=== PATIENT | male | born 1960 | race Caucasian/White ===

== ENCOUNTER 2021-08-10 09:12 | Outpatient (REF) | payer OTHER, SELFPAY ==
--- NOTE | ~2021-08-10 | XR_ITS ---
EXAMINATION: XR CHEST CLINICAL INFORMATION: COPD. COMPARISON: Chest radiograph done on 11/06/2012. TECHNIQUE: 2 views of the chest were obtained. FINDINGS: Asymmetric elevated left hemidiaphragm with mild blunting of the left lateral CP angle. Previously documented retrocardiac airspace disease at left lung base shows interval resolution. Pleural parenchymal presumed scar related changes are noted at right lung apex. Both lungs are otherwise hyperinflated, similar to prior study. Cardiac mediastinal silhouette is within normal limit. The visualized upper abdomen is unremarkable. XR/XR chest 2V IMPRESSION: 1. Asymmetric elevated left hemidiaphragm and blunting of the left lateral CP angle, similar to prior study dated 11/06/2012. 2. Interval resolution of retrocardiac airspace disease since prior study. 3. Stable pleuroparenchymal scar at right lung apex. 4. Hyperinflated lung page consistent with known COPD.
[2021-08-10 09:43] LABS: MANUAL DIFF FLAG NO
[2021-08-10 10:07] LABS: Basophils Absolute Auto 0.1 X10*3/uL (0.0-0.2); Basophils Percent Auto 1.1 % (0-2); Eosinophils Absolute Auto 0.2 X10*3/uL (0.0-0.4); Eosinophils Percent Auto 2.5 % (0-4); Hematocrit 48.3 % (42.0-52.0); Hemoglobin 15.9 g/dl (14.0-18.0); Imm Gran Abs Auto 0.02 X10*3/uL (0.00-0.03); Imm Gran Pct Auto 0.3 % (0.0-0.4); Lymphocytes Absolute Auto 1.3 X10*3/uL (1.2-4.9); Lymphocytes Percent Auto 18.4 % (20-40); Mean Corpuscular HGB Conc 32.9 g/dl (31.0-36.0); Mean Corpuscular Hemoglobin 31.1 pg (27.0-33.0); Mean Corpuscular Volume 94.3 fL (80.0-98.0); Mean Platelet Volume 9.3 fL (9.4-12.4); Monocytes Absolute Auto 0.8 X10*3/uL (0.1-1.2); Monocytes Percent Auto 10.7 % (2-11); Neutrophils Absolute Auto 4.8 x10*3/uL (2.0-8.3); Platelet Count 301 X10*3/uL (160-400); Red Blood Count 5.12 X10*6/uL (4.60-5.80); Red Cell Distribution Width 13.7 % (11.0-16.0); White Blood Count 7.2 X10*3/uL (4.8-10.8)
[2021-08-10 10:25] LABS: Appearance Urine CLEAR; Color Urine YELLOW; Glucose Urine UA NEG (NEG); Leukocyte Esterase Urine NEG (NEG); Nitrite Urine NEG (NEG); Urine Blood NEG (NEG); Urine Ketones NEG (NEG); Urine Protein NEG (NEG-TRACE)
[2021-08-10 10:34] LABS: Alanine Aminotransferase 22 U/L (0-40); Albumin Level 4.4 g/dL (3.5-5.0); Alkaline Phosphatase 76 U/L (39-117); Anion Gap 13 (12-20); Aspartate Amino Transferase 20 U/L (5-37); Bilirubin Total 0.7 mg/dL (0.0-1.0); Blood Urea Nitrogen 18 mg/dL (9-16); Calcium 9.3 mg/dL (8.4-10.2); Carbon Dioxide 29 mmol/L (22-29); Chloride 97 mmol/L (96-108); Cholesterol 176 mg/dL; Estimated Glomerular Filt Rate > 60; Glucose Fasting 87 mg/dL (60-99); HDL Cholesterol 57 mg/dL; LDL Cholesterol Calculated 99 mg/dl; Potassium 4.7 mmol/L (3.3-5.1); Sodium 134 mmol/L (135-145); Total Protein 7.7 g/dL (6.5-8.0); Triglycerides 102 mg/dL
[2021-08-10 10:55] LABS: Free T4 (Free Thyroxine) 1.04 ng/dL (0.71-1.85); Prostate Specific Antigen 1.68 ng/mL (<0.05-4.0); Thyroid Stimulating Hormone 0.77 uIU/mL (0.32-4.0)
[2021-08-10 11:12] LABS: Vitamin B12 286 pg/mL (200-900)
== END 2021-08-10 09:13 | disposition home or self-care (01) ==
LOC: HO.XRAY 09:12
PROVIDERS: PCP Internal Medicine; Visit Provider Internal Medicine
DX: Z00.00 Encounter for general adult medical examination without abnormal findings (principal); Z12.5 Encounter for screening for malignant neoplasm of prostate; R60.0 Localized edema; J44.9 Chronic obstructive pulmonary disease, unspecified; N40.0 Benign prostatic hyperplasia without lower urinary tract symptoms; I45.10 Unspecified right bundle-branch block
CPT/HCPCS: 36415; 71046; 80053; 80061; 81003; 82607; 84153; 84439; 84443; 85025

== ENCOUNTER → 2021-09-19 09:21 | Outpatient (REF) | payer OTHER, SELFPAY ==
--- NOTE | 2021-09-19 09:24 | CA_ITS ---
Transthoracic Echocardiogram Patient (Last, First, Middle): Harry Nelson P Gender: Male Date of : 1960 Age: 61 Procedure Date: 09/19/2021 Procedure Type: Transthoracic Echocardiogram Location: OP Height: 172.72 cm Weight: 68.04 kg BSA: 1.81 m2 Heart Rate: bpm BP: 134 / 80 mmHg Industrial Engineering Manager: Referring MD: Drew Clay MD Personal Insurance Advisor: Rg Guallpa MD Symptoms: R60.9 EDEMA 145.10 RRRR Study Quality: Fair ECG Rhythm: Sinus Conclusions: - 1. Normal LV systolic function with impaired relaxation filling pattern 2. Thickened aortic valve, aortic stenosis and bicuspid aortic valve cannot be entirely ruled out 3. Normal cardiac valvular Doppler 4. Normal RV systolic pressure 5. No pericardial effusion Findings Left Ventricle Normal left ventricular size, thickness, and systolic function. The visually estimated ejection fraction is between 60-65%. Spectral Doppler is indicative of an impaired relaxation filling pattern. E/E prime ratio is between 8 and 15 consistent with indeterminate filling pressures. Right Ventricle Normal right ventricular cavity size and systolic function. Atria The left atrium is normal in size. Interatrial shunt cannot be excluded. The right atrium was not well visualized. Aortic Valve The aortic valve was not well visualized. There is mild calcification of the aortic valve. There is severe thickening of the aortic valve. There is no aortic valve regurgitation. bicuspid aortic valve cannot be entirely ruled out. Also aortic stenosis cannot be entirely ruled out Mitral Valve Likely normal mitral valve structure and function. There is trace mitral valve regurgitation. There is no mitral valve stenosis. Pulmonic Valve The pulmonic valve was not well visualized. Tricuspid Valve Likely normal tricuspid valve structure and function. There is trace tricuspid valve regurgitation. The right ventricular systolic pressure is normal. The right ventricular systolic pressure is 32 mmHg. Normal right atrial pressure. There is no evidence of pulmonary hypertension. Great Vessels All visible segments of the aorta are normal in size. The pulmonary artery was not well visualized. Venous The inferior vena cava is normal in size and collapses greater than 50% with inspiration. Pericardium/Pleural There is no evidence of pericardial effusion. Prior Study Comparison No prior study available for comparison. Measurements 2D Linear Measurements IVSd: 1.05 0.6-0.9/0.6-1.0 cm LVIDd: 4.05 3.9-5.3/4.2-5.9 cm LVIDd Index: 2.24 2.4-3.2/2.2-3.1 cm/m2 LVIDs: 2.29 2.0-3.6 cm LVPWd: 0.98 0.7-1.1 cm Ao Root: 2.80 2.1-3.5 cm LA Diam: 3.30 2.7-3.8/3.0-4.0 cm LAIDs Index: 1.82 1.5-2.3 cm/m2 LV Mass: 164.20 67-162/88-224 g LV Mass Index: 90.72 43-95/49-115 g/m2 LVOT Diam: 2.40 3.0+(-)1.3 cm Mitral Valve MV Pk E: 0.91 MV PK A: 1.05 MV Decel Time: 203.00 E/A: 0.90 E'Lateral: 7.51 E'Medial: 8.81 E/E' Med: 10.40 E/E' Lat: 12.10 PHT: 59.00 MVA PHT: 3.73 Decel Blount: 4.50 Aortic Valve AoV Pk Chris: 1.48 AoV Mn Chris: 1.01 AoV VTI: 0.33 AoV Pk Grad: 9.00 Aov Mn Grad: 5.00 BARBARA Cont.VTI: 3.41 LVOT LVOT Pk Chris: 1.10 LVOT Mn Chris: 0.75 LVOT VTI: 0.25 LVOT Pk Grad: 5.00 LVOT Mn Grad: 3.00 LVOT Diam: 2.40 LVOT Area: 4.52 Diastolic Function MV Pk E: 0.91 MV Pk A: 1.05 E/A: 0.90 E'Medial: 8.81 E/E' Med: 10.40 E' Laterial: 7.51 E/E' Lat: 12.10 Tricuspid Valve TR Pk Chris: 2.68 TR Pk Grad: 29.00 RA Press: 3.00 RVSP: 32.00 Great Vessels Aorta Ao Root-2D: 2.80 2.0-3.7 cm Ao Asc: 2.70 2.1-3.4 cm Pulmonary Valve PV Pk Chris: 1.09 Peak PV Grad: 5.00 Updated in Other Vendor System with Status of Final Rg Guallpa MD electronically signed on 09/19/2021 3:44:13 PM with status of Final
== END ==
LOC: HO.CARD 09:21
PROVIDERS: PCP Internal Medicine; Visit Provider Internal Medicine
DX: R60.9 Edema, unspecified (principal); I45.10 Unspecified right bundle-branch block
CPT/HCPCS: 93306

== ENCOUNTER 2021-11-27 09:06 | Outpatient (REF) | payer OTHER, SELFPAY ==
--- NOTE | ~2021-11-27 | XR_ITS ---
EXAMINATION: BILATERAL FOOT CLINICAL INFORMATION: Bilateral foot pain COMPARISON: None TECHNIQUE: 3 views each foot. FINDINGS: Left foot: There is no visible acute fracture, dislocation or subluxation seen. The ankle mortise and subtalar joints are normal. The soft tissues are normal. Right foot: There is no visible acute fracture, dislocation or subluxation seen. The ankle mortise and subtalar joints are normal. The soft tissues are normal. XR/XR foot LT min 3V IMPRESSION: Unremarkable bilateral foot exam.
--- NOTE | ~2021-11-27 | XR_ITS ---
EXAMINATION: BILATERAL FOOT CLINICAL INFORMATION: Bilateral foot pain COMPARISON: None TECHNIQUE: 3 views each foot. FINDINGS: Left foot: There is no visible acute fracture, dislocation or subluxation seen. The ankle mortise and subtalar joints are normal. The soft tissues are normal. Right foot: There is no visible acute fracture, dislocation or subluxation seen. The ankle mortise and subtalar joints are normal. The soft tissues are normal. XR/XR foot RT min 3V IMPRESSION: Unremarkable bilateral foot exam.
== END 2021-11-27 09:07 | disposition home or self-care (01) ==
LOC: HO.XRAY 09:06
PROVIDERS: PCP Internal Medicine; Visit Provider Internal Medicine
DX: M79.672 Pain in left foot (principal); M79.671 Pain in right foot
CPT/HCPCS: 73630

== ENCOUNTER 2023-01-18 09:03 | Outpatient (REF) | payer OTHER, SELFPAY ==
[2023-01-18 09:19] LABS: MANUAL DIFF FLAG NO
[2023-01-18 09:43] LABS: Basophils Absolute Auto 0.1 X10*3/uL (0.0-0.2); Basophils Percent Auto 0.9 % (0-2); Eosinophils Absolute Auto 0.2 X10*3/uL (0.0-0.4); Eosinophils Percent Auto 2.6 % (0-4); Hematocrit 46.9 % (42.0-52.0); Hemoglobin 15.9 g/dl (14.0-18.0); Imm Gran Abs Auto 0.03 X10*3/uL (0.00-0.03); Imm Gran Pct Auto 0.4 % (0.0-0.4); Lymphocytes Absolute Auto 1.2 X10*3/uL (1.2-4.9); Lymphocytes Percent Auto 14.4 % (20-40); Mean Corpuscular HGB Conc 33.9 g/dl (31.0-36.0); Mean Corpuscular Hemoglobin 32.1 pg (27.0-33.0); Mean Corpuscular Volume 94.6 fL (80.0-98.0); Mean Platelet Volume 9.6 fL (9.4-12.4); Monocytes Absolute Auto 0.7 X10*3/uL (0.1-1.2); Monocytes Percent Auto 8.5 % (2-11); Neutrophils Absolute Auto 5.8 x10*3/uL (2.0-8.3); Neutrophils Percent Auto 73.2 % (45-73); Platelet Count 245 X10*3/uL (160-400); Red Blood Count 4.96 X10*6/uL (4.60-5.80); Red Cell Distribution Width 13.7 % (11.0-16.0)
[2023-01-18 10:18] LABS: Alanine Aminotransferase 12 U/L (0-40); Albumin Level 4.3 g/dL (3.5-5.0); Alkaline Phosphatase 64 U/L (39-117); Anion Gap 13 (12-20); Aspartate Amino Transferase 15 U/L (5-37); Bilirubin Total 0.5 mg/dL (0.0-1.0); Blood Urea Nitrogen 11 mg/dL (9-16); C Reactive Protein 0.18 mg/dL (< or = 0.50); Calcium 9.2 mg/dL (8.4-10.2); Carbon Dioxide 28 mmol/L (22-29); Chloride 97 mmol/L (96-108); Estimated Glomerular Filt Rate > 60; Glucose Random 103 mg/dL (60-115); Potassium 4.3 mmol/L (3.3-5.1); Sodium 134 mmol/L (135-145); Total Protein 7.6 g/dL (6.5-8.0)
[2023-01-18 10:34] LABS: Prostate Specific Antigen 2.18 ng/mL (<0.05-4.0)
[2023-01-18 11:24] LABS: Appearance Urine Clear; Color Urine Yellow; Glucose Urine UA Negative (Negative); Leukocyte Esterase Urine Negative (Negative); Nitrite Urine Negative (Negative); Specific Gravity - Urine <= 1.005 (1.005-1.025); Urine Blood Negative (Negative); Urine Ketones Negative (Negative); Urine Protein Negative (Neg-Trace)
== END 2023-01-18 09:04 | disposition home or self-care (01) ==
LOC: HO.LAB 09:03
PROVIDERS: PCP Internal Medicine; Visit Provider Internal Medicine
DX: Z12.5 Encounter for screening for malignant neoplasm of prostate (principal); J44.9 Chronic obstructive pulmonary disease, unspecified; R60.0 Localized edema; I73.9 Peripheral vascular disease, unspecified; K57.90 Diverticulosis of intestine, part unspecified, without perforation or abscess without bleeding
CPT/HCPCS: 36415; 80053; 81003; 84153; 85025; 86140

== ENCOUNTER 2023-02-04 14:23 | Outpatient (REF) | payer OTHER, SELFPAY ==
--- NOTE | ~2023-02-04 | US_ITS ---
EXAMINATION: Bilateral LOWER EXTREMITY DUPLEX CLINICAL INFORMATION: Foot pain COMPARISON: None TECHNIQUE: Real-time ultrasound and Doppler techniques (integrating B-mode 2-D vascular images, Doppler spectral analysis and color flow Doppler imaging) were utilized to interrogate the lower extremities. FINDINGS: RIGHT LEG: Common femoral artery: 113 cm/s, monophasic Profunda femoris artery: 330 cm/s, monophasic Superficial femoral artery (proximal): Occluded Superficial femoral artery (mid): Occluded Superficial femoral artery (distal): 187 cm/s, monophasic Popliteal artery: 44 cm/s, monophasic Anterior tibial artery: 7.3 cm/s, monophasic Peroneal artery: 36.9 cm/s, monophasic Posterior tibial artery: 8.8 cm/s, monophasic LEFT LEG: Common femoral artery: 136 cm/s, monophasic Profunda femoris artery: 281 cm/s, monophasic Superficial femoral artery (proximal): Occluded Superficial femoral artery (mid): Occluded Superficial femoral artery (distal): 52 cm/s, monophasic Popliteal artery: 61.3 cm/s, monophasic Anterior tibial artery: 24.8 cm/s, monophasic Peroneal artery: 59.3 cm/s, monophasic Posterior tibial artery: 31.7 cm/s, monophasic US/US arterial duplex LE BI IMPRESSION: 1. Right: Occlusion of the proximal and mid superficial femoral artery with reconstitution of the distal superficial femoral artery. 2. Left: Occlusion of the proximal and mid superficial femoral artery. There is reconstitution of flow distally. 3. Slow flow and dampened waveforms in the tibial arteries, right greater than left.
--- NOTE | ~2023-02-04 | US_ITS ---
EXAMINATION: US EXTRACRANIAL CAROTID DUPLEX, BILATERAL CLINICAL INFORMATION: Bilateral foot pain and stenosis COMPARISON: None available. TECHNIQUE: Real-time ultrasound and Doppler techniques (integrating B-mode 2-D vascular images, Doppler spectral analysis and color-flow Doppler imaging) were utilized to interrogate the extracranial carotid arteries, the vertebral arteries and proximal subclavian arteries bilaterally. The degree of stenosis is determined by criteria similar to NASCET. FINDINGS: Right Side: 1. There is mild atherosclerotic plaque seen in the bifurcation/proximal ICA region. 2. The common carotid artery PSV proximally is 128 cm/s and distally 110 cm/s. 3. The proximal internal carotid artery velocities are 68 cm/s systolic and 20.5 cm/s diastolic. 4. The proximal external carotid artery PSV is 158 cm/s. 5. The vertebral artery shows antegrade flow. 6. The subclavian artery waveforms are normal. Left Side: 1. There is mild atherosclerotic plaque seen in the bifurcation/proximal ICA region. 2. The common carotid artery PSV proximally is 147 cm/s and distally 80 cm/s. 3. The proximal internal carotid artery velocities are 71.5 cm/s systolic and 18.2 cm/s diastolic. 4. The proximal external carotid artery PSV is 390 cm/s. 5. The vertebral artery shows antegrade flow. 6. The subclavian artery waveforms are normal. US/US carotid duplex BI IMPRESSION: 1. RIGHT: Minimal, non-hemodynamically significant stenosis of the proximal right internal carotid artery corresponding to a 0-49% stenosis by velocity criteria. 2. LEFT: Minimal, non-hemodynamically significant stenosis of the proximal left internal carotid artery corresponding to a 0-49% stenosis by velocity criteria. 3. The left external carotid artery is stenotic.
== END 2023-02-04 14:24 | disposition home or self-care (01) ==
LOC: HO.US 14:23
PROVIDERS: PCP Internal Medicine; Visit Provider Internal Medicine
DX: I65.23 Occlusion and stenosis of bilateral carotid arteries (principal); M25.571 Pain in right ankle and joints of right foot; M25.572 Pain in left ankle and joints of left foot
CPT/HCPCS: 93880; 93925

== ENCOUNTER 2024-01-17 08:59 | Outpatient (REF) | payer OTHER, SELFPAY ==
[2024-01-17 09:16] LABS: MANUAL DIFF FLAG NO
[2024-01-17 10:17] LABS: Appearance Urine Clear; Color Urine Yellow; Glucose Urine UA Negative (Negative); Leukocyte Esterase Urine Negative (Negative); Nitrite Urine Negative (Negative); Specific Gravity - Urine 1.015 (1.005-1.025); Urine Blood Negative (Negative); Urine Ketones Negative (Negative); Urine Protein Negative (Neg-Trace)
[2024-01-17 10:18] LABS: Basophils Absolute Auto 0.1 X10*3/uL (0.0-0.2); Basophils Percent Auto 1.8 % (0-2); Eosinophils Absolute Auto 0.2 X10*3/uL (0.0-0.4); Eosinophils Percent Auto 3.4 % (0-4); Hematocrit 48.4 % (42.0-52.0); Hemoglobin 16.1 g/dl (14.0-18.0); Imm Gran Abs Auto 0.01 X10*3/uL (0.00-0.03); Imm Gran Pct Auto 0.2 % (0.0-0.4); Lymphocytes Absolute Auto 1.3 X10*3/uL (1.2-4.9); Lymphocytes Percent Auto 22.4 % (20-40); Mean Corpuscular HGB Conc 33.3 g/dl (31.0-36.0); Mean Corpuscular Hemoglobin 31.3 pg (27.0-33.0); Mean Platelet Volume 9.7 fL (9.4-12.4); Monocytes Absolute Auto 0.6 X10*3/uL (0.1-1.2); Monocytes Percent Auto 11.1 % (2-11); Neutrophils Absolute Auto 3.5 x10*3/uL (2.0-8.3); Neutrophils Percent Auto 61.1 % (45-73); Platelet Count 291 X10*3/uL (160-400); Red Blood Count 5.15 X10*6/uL (4.60-5.80); Red Cell Distribution Width 14.5 % (11.0-16.0); White Blood Count 5.7 X10*3/uL (4.8-10.8)
[2024-01-17 11:02] LABS: Alanine Aminotransferase 15 U/L (0-40); Albumin Level 4.3 g/dL (3.5-5.0); Alkaline Phosphatase 69 U/L (39-117); Anion Gap 12 (12-20); Aspartate Amino Transferase 14 U/L (5-37); Bilirubin Total 0.5 mg/dL (0.0-1.0); Blood Urea Nitrogen 13 mg/dL (9-16); Calcium 9.2 mg/dL (8.4-10.2); Carbon Dioxide 31 mmol/L (22-29); Chloride 98 mmol/L (96-108); Cholesterol 174 mg/dL (<200); Estimated Glomerular Filt Rate > 60; Glucose Fasting 102 mg/dL (60-99); HDL Cholesterol 58 mg/dL (>40); LDL Cholesterol Calculated 97 mg/dL (<100); Potassium 5.1 mmol/L (3.3-5.1); Sodium 136 mmol/L (135-145); Total Protein 7.7 g/dL (6.5-8.0); Triglycerides 97 mg/dL (<150)
== END 2024-01-17 09:00 | disposition home or self-care (01) ==
LOC: HO.LAB 08:59
PROVIDERS: PCP Internal Medicine; Visit Provider Internal Medicine
DX: J44.9 Chronic obstructive pulmonary disease, unspecified (principal); N40.0 Benign prostatic hyperplasia without lower urinary tract symptoms; I25.10 Atherosclerotic heart disease of native coronary artery without angina pectoris; K57.90 Diverticulosis of intestine, part unspecified, without perforation or abscess without bleeding
CPT/HCPCS: 36415; 80053; 80061; 81003; 85025

== ENCOUNTER 2024-03-11 14:11 | Outpatient (AMB) | payer OTHER, SELFPAY ==
--- NOTE | 2024-03-11 14:11 | MHC.OFFVIS ---
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 He had seen his primary care doctor and complained of numbness of his lower extremities difficulty walking and he had actually developed some ulcerations. He has a history of COPD. He reports that he has been smoking half a pack per day since his teens. [facility] Social History (Updated 03/11/24 @ 14:16 by Renate Bach Clive) Patient Tobacco Use Status: Current everyday Tobacco user Review of Systems Const All systems reviewed & are unremarkable except as noted in HPI and below Reports no additional complaints ENT Reports Normal hearing present Card Denies chest pain, Denies chest pain at rest, Denies chest pain with activity and Denies pedal edema Resp Denies cough GI Denies abdominal pain Musc Denies abnormal gait, Denies muscle cramps and Denies radiating pain into limb Skin/Breast Denies skin ulcer and Denies wounds Neuro Reports Normal hearing present and Denies abnormal gait Psych Reports no additional complaints Physical Exam Const General: cooperative, healthy appearing and comfortable Orientation/consciousness: oriented to person, oriented to place and oriented to time HEENT Head: Yes normal to inspection Neck Neck: Yes normal visual inspection Carotids: no bruits Chest Chest palpation & inspection: normal inspection of the chest Resp Effort & Inspection: normal respiratory effort and able to speak in complete sentences Auscultation: clear to auscultation bilaterally, no crackles, no rales, no rhonchi and no wheezes Cardio Other: Bilateral DP signals Rate: regular rate Rhythm: regular rhythm Heart sounds: S1 normal heart sound present and S2 normal heart sound present Bruits: no carotid bruits Peripheral pulses: Peripheral pulses 2+ throughout GI Inspection: Yes normal to inspection Skin Wounds: no wounds Hair: normal Neuro General: oriented to person, oriented to place and oriented to time Cranial nerves: Yes CN's II-XII intact bilaterally and Yes Normal hearing present Cognition (Neuro): normal cognition Motor exam (neuro): 5/5 motor strength present throughout Extrem Other: venous exam: No significant superficial varicosities or spider telangiectasias, minimal edema General: No clubbing, No cyanosis and No edema Psych Appearance: grossly normal Mental Status: mental status grossly normal Speech and movement: Normal speech and movement present Results Reviewed Results Reviewed: Noninvasive arterial testing dated 02/06/2023 demonstrates bilateral SFA occlusions. There is monophasic flow so there would be concern of inflow disease as well. This is testing dated 920 10/29/2022. Assessment & Plan Assessment & Plan (1) PAD (peripheral artery disease): Code(s): I73.9 - Peripheral vascular disease, unspecified Category: Medical Plan: In short patient has activity limiting claudication. I did review the pathophysiology of peripheral vascular disease with the patient. In addition we did discuss routine conservative measures including a healthy diet and the importance of exercise and ambulation. We did discuss risk factor modification. The patient will require CT angiogram with runoff to better elucidate the level of disease.. Thank you for allowing us to participate in this patient's care. If there are any questions or concerns please do not hesitate to contact us. Please note a longitudinal relationship has been created with the patient and we have been following and surveillance this chronic condition. Orders: Orders Creatinine Today I73.9 - Peripheral vascular disease, unspecified CT angio abd aorta runoff 1 Week I73.9 - Peripheral vascular disease, unspecified Blood Urea Nitrogen Today I73.9 - Peripheral vascular disease, unspecified Coding Level of Care Code New Pt Level 4 (96999) Complex EM visit Add On G2211 Diagnoses PAD (peripheral artery disease) I73.9
== END 2024-03-11 14:28 | disposition home or self-care (01) ==
LOC: HO.HVS 14:11
PROVIDERS: PCP Internal Medicine; Visit Provider Surgery Vascular Surgery
DX: I73.9 Peripheral vascular disease, unspecified (principal)
CPT/HCPCS: 99204; G2211

== ENCOUNTER → 2024-03-11 14:11 | Outpatient (BNVA) | payer OTHER, SELFPAY | PROVIDERS: PCP Internal Medicine; Visit Provider Surgery Vascular Surgery | DX: I73.9 Peripheral vascular disease, unspecified (principal) | CPT/HCPCS: 99202 ==

== ENCOUNTER 2024-03-20 09:01 | Outpatient (REF) | payer OTHER, SELFPAY ==
[2024-03-20 10:20] LABS: Blood Urea Nitrogen 13 mg/dL (9-16); Estimated Glomerular Filt Rate > 60
== END 2024-03-20 09:02 | disposition home or self-care (01) ==
LOC: HO.LAB 09:01
PROVIDERS: PCP Internal Medicine; Visit Provider Surgery Vascular Surgery
DX: I73.9 Peripheral vascular disease, unspecified (principal)
CPT/HCPCS: 36415; 82565; 84520

== ENCOUNTER 2024-03-25 11:20 | Outpatient (REF) | payer OTHER, SELFPAY ==
--- NOTE | ~2024-03-25 | CT_ITS ---
STUDY PERFORMED: CTA ABDOMEN, PELVIS AND LOWER EXTREMITY RUNOFF WITH CONTRAST HISTORY: I73.9 - Peripheral vascular disease, unspecified DESCRIPTION: Routine abdominal aorta and lower extremity runoff CTA protocol with contrast was performed. 100 mL of omnipaque was administered. 3D POSTPROCESSING: Multiple 3-D angiographic images were processed from the initial data set by the [facility] under concurrent physician supervision. DOSE LOWERING TECHNIQUES: This CT examination was performed using dose optimization techniques as appropriate, variously including the following: - Automated exposure control - Adjustment of mA and/or kV according to patient size (this includes techniques or standardized protocols for targeted exams where dose is matched to indication/reason for exam; i.e. extremities or head) - Use of iterative reconstruction technique DLP: 642 mGycm. COMPARISON: CT abdomen and pelvis May 22, 2012 FINDINGS: VASCULAR: ABDOMINAL AORTA: patent and normal in caliber. Extensive plaque in the infrarenal abdominal aorta RIGHT LOWER EXTREMITY: - Common Iliac Artery: Heavily calcified but patent - Internal Iliac Artery: patent but heavily calcified - External Iliac Artery: patent - Common Femoral Artery: Course plaque causing high-grade stenosis - Profunda Femoral Artery: patent - Superficial Femoral Artery: Occluded - Popliteal Artery: Occluded proximally but reconstitutes via genicular collaterals. Extensive plaque causing multifocal stenoses - Anterior Tibial Artery: Extensive plaque proximally but reconstituted distally -Tibioperoneal trunk: patent - Posterior Tibial Artery: Extensive plaque proximally but reconstituted distally - Peroneal Artery: Extensive plaque proximally but reconstituted distally LEFT LOWER EXTREMITY: - Common Iliac Artery: patent - Internal Iliac Artery: patent - External Iliac Artery: patent - Common Femoral Artery: patent - Profunda Femoral Artery: patent - Superficial Femoral Artery: Occluded along most of its length with some amount of distal reconstitution, although there is extensive plaque throughout the distal SFA. - Popliteal Artery: Extensive plaque throughout. - Anterior Tibial Artery: Extensive plaque proximally but reconstituted distally -Tibioperoneal trunk: patent - Posterior Tibial Artery: Extensive plaque proximally but reconstituted distally - Peroneal Artery: Extensive plaque proximally but reconstituted distally CELIOMESENTERIC ARTERIES: The celiac artery, SMA, and IGGY are patent RENAL ARTERIES: patent single bilateral renal arteries NONVASCULAR: Lung Bases: The visualized lung bases are unremarkable. Liver and Biliary Tree: The liver is normal in size, shape, and attenuation. No focal hepatic lesion or biliary ductal dilatation is present. Gallbladder: The gallbladder is unremarkable with no evidence of radiopaque gallstones, gallbladder wall thickening, or obvious pericholecystic inflammatory changes. Pancreas: Unremarkable. Spleen: Unremarkable. Adrenal Glands: Unremarkable. Kidneys and Ureters: The kidneys are normal in size, shape, and attenuation. There is a 7 mm stone in the left lower pole. Bladder: Unremarkable. Gastrointestinal Tract: The small and large bowel are unremarkable. The appendix is not well visualized. Abdominal Wall: No significant hernia is appreciated. Lymph Nodes: Normal. Pelvic Viscera: Unremarkable. Osseous Structures: Degenerative changes of the lumbar spine. CT/CT angio abd aorta runoff IMPRESSION: 1. Extensive atherosclerotic disease with occlusion of the bilateral superficial femoral arteries. There is reconstitution of the popliteal arteries via genicular collaterals. 2. There is proximal atherosclerotic plaque in the tibial arteries bilaterally, but distal opacification of all three runoff vessels bilaterally. 3. There is a 7 mm stone in the left lower pole. Electronically signed by: Aung Hensley MD 03/26/2024 10:47 AM TERRI
[2024-03-25] MEDS: iohexoL 350 MG/ML 100 ML INFUS..BTL IV (12:56)
== END 2024-03-25 11:21 | disposition home or self-care (01) ==
LOC: HO.CT 11:20
PROVIDERS: PCP Internal Medicine; Visit Provider Surgery Vascular Surgery
DX: I73.9 Peripheral vascular disease, unspecified (principal)
CPT/HCPCS: 75635; Q9967

== ENCOUNTER 2024-05-11 10:57 | Outpatient (AMB) | payer OTHER, SELFPAY ==
--- NOTE | 2024-05-11 11:03 | A.OFFVIS_ITS ---
Intake Visit Reasons: follow up CTA w/ runoff 03/25/2024 Intake Note: Patient presents for CTA w/runoff performed on 03/25/24. No complaints. Accompanied by: Self / Same As Patient Allergies acetaminophen [Percocet] Allergy (Intermediate, Verified 05/11/24 11:05) Vomiting oxycodone [From PERCOCET] Adverse Reaction (Unknown, Verified 05/11/24 11:05) NAUSEA & VOMITING HPI HPI follow up CTA w/ runoff 03/25/2024: Details: Very pleasant 63-year-old gentleman presents for follow-up regarding peripheral vascular disease. He reports that he can walk less than a block. He has pain and numbness in particular the left lower extremity. He is on a daily aspirin. He now presents to us for vascular follow-up with CT angiogram [facility] Social History Patient Tobacco Use Status: Current everyday Tobacco user Review of Systems Const All systems reviewed & are unremarkable except as noted in HPI and below Reports no additional complaints ENT Reports Normal hearing present Card Denies chest pain, Denies chest pain at rest, Denies chest pain with activity and Denies pedal edema Resp Denies cough GI Denies abdominal pain Musc Denies abnormal gait, Denies muscle cramps and Denies radiating pain into limb Skin/Breast Denies skin ulcer and Denies wounds Neuro Reports Normal hearing present and Denies abnormal gait Psych Reports no additional complaints Physical Exam Const General: cooperative, healthy appearing and comfortable Orientation/consciousness: oriented to person, oriented to place and oriented to time HEENT Head: Yes normal to inspection Neck Neck: Yes normal visual inspection Carotids: no bruits Chest Chest palpation & inspection: normal inspection of the chest Resp Effort & Inspection: normal respiratory effort and able to speak in complete sentences Auscultation: clear to auscultation bilaterally, no crackles, no rales, no rhonchi and no wheezes Cardio Other: Bilateral DP signals Rate: regular rate Rhythm: regular rhythm Heart sounds: S1 normal heart sound present and S2 normal heart sound present Bruits: no carotid bruits Peripheral pulses: Peripheral pulses 2+ throughout GI Inspection: Yes normal to inspection Skin Wounds: no wounds Hair: normal Neuro General: oriented to person, oriented to place and oriented to time Cranial nerves: Yes CN's II-XII intact bilaterally and Yes Normal hearing present Cognition (Neuro): normal cognition Motor exam (neuro): 5/5 motor strength present throughout Extrem Other: venous exam: No significant superficial varicosities or spider t elangiectasias, minimal edema General: No clubbing, No cyanosis and No edema Psych Appearance: grossly normal Mental Status: mental status grossly normal Speech and movement: Normal speech and movement present Results Reviewed Results Reviewed: CT angiogram dated 03 25 2024 demonstrates very calcified but patent iliacs. With less SFA total occlusion with plaque throughout the popliteal artery as well. Assessment & Plan Assessment & Plan (1) PAD (peripheral artery disease): Code(s): I73.9 - Peripheral vascular disease, unspecified Category: Medical Plan: Patient notes leg pain when walking distances. I have discussed the pathophysiology of peripheral vascular disease with the patient. I have also discussed risk factor modification. I have reviewed the patient's CT angiogram which demonstrated inflow and outflow disease . the patient would benefit from a left leg endovascular peripheral angiogram with possible angioplasty, stent, and/or atherectomy. This has been discussed in detail with the patient along with risks, benefits, and complications. This includes but is not limited to bleeding, infection, heart attack, need for emergent surgical repair, limb ischemia, blood vessel damage, bleeding, puncture, kidney injury, bruising, allergic reaction, and skin reaction. The patient demonstrates a clear understanding. We will schedule for the next appropriate time. Thank you for allowing us to assist in this patient's care. Coding Level of Care Code Est Pt Level 4 (86101) Complex EM visit Add On G2211 Diagnoses PAD (peripheral artery disease) I73.9
== END 2024-05-11 11:38 | disposition home or self-care (01) ==
PROVIDERS: PCP Internal Medicine; Visit Provider Surgery Vascular Surgery
DX: I73.9 Peripheral vascular disease, unspecified (principal)
CPT/HCPCS: 99214; G2211

== ENCOUNTER → 2024-05-11 10:57 | Outpatient (BNVA) | payer OTHER, SELFPAY | PROVIDERS: PCP Internal Medicine; Visit Provider Surgery Vascular Surgery | DX: I73.9 Peripheral vascular disease, unspecified (principal) | CPT/HCPCS: 99212 ==

== ENCOUNTER 2024-06-02 06:05 | Day surgery (SDC) | payer OTHER, SELFPAY ==
[2024-06-02] VITALS (18 sets, daily range): BP systolic 124–167; BP diastolic 72–88; PULSE 84–103; RESP 15–24; TEMP 35.9–36.1; O2SAT 92–98; BMI 20.8
[2024-06-02 06:35] LABS: MANUAL DIFF FLAG NO
[2024-06-02 06:37] LABS: Basophils Absolute Auto 0.1 X10*3/uL (0.0-0.2); Basophils Percent Auto 1.5 % (0-2); Eosinophils Absolute Auto 0.3 X10*3/uL (0.0-0.4); Hematocrit 48.5 % (42.0-52.0); Hemoglobin 16.5 g/dl (14.0-18.0); Imm Gran Abs Auto 0.02 X10*3/uL (0.00-0.03); Imm Gran Pct Auto 0.3 % (0.0-0.4); Lymphocytes Absolute Auto 1.4 X10*3/uL (1.2-4.9); Lymphocytes Percent Auto 20.2 % (20-40); Mean Platelet Volume 9.4 fL (9.4-12.4); Monocytes Absolute Auto 0.7 X10*3/uL (0.1-1.2); Monocytes Percent Auto 9.6 % (2-11); Neutrophils Absolute Auto 4.3 x10*3/uL (2.0-8.3); Neutrophils Percent Auto 64.4 % (45-73); Platelet Count 247 X10*3/uL (160-400); Red Blood Count 5.16 X10*6/uL (4.60-5.80); Red Cell Distribution Width 13.7 % (11.0-16.0); White Blood Count 6.7 X10*3/uL (4.8-10.8)
[2024-06-02 06:49] LABS: Blood Urea Nitrogen 14 mg/dL (9-16); Creatinine Clr Calc Pharmacy 106.1; Estimated Glomerular Filt Rate > 60
[2024-06-02] MEDS: 0.9 % Sodium Chloride 1,000 ML 100 ML IVCONT (07:18)
[2024-06-02] MEDS: fentaNYL citrate/PF 100 MCG/2 ML VIAL 25 MCG IVPUSH (08:03)
[2024-06-02] MEDS: Midazolam HCl 2 MG/2 ML VIAL 0.5 MG IVPUSH (08:04)
--- NOTE | 2024-06-02 08:57 | P.OP_ITS ---
Operative Note Operative Note Date of Service: 06/02/24 Narrative: Angiogram report from [facility] Preoperative diagnosis: Atherosclerosis of left lower extremity with activity limiting claudication Postoperative diagnosis: Same Procedure: 1. Ultrasound-guided right common femoral access 2. Aortogram with bilateral lower extremity runoff Surgeon:Kiet Ames M.D., FACS, RPVI Livestock Nutrition Territory Manager:None Anesthesia: Local with moderate conscious sedation. Total intraservice moderate sedation time was 33 minutes. I monitored the patient's level of consciousness and physiologic status continuously throughout the procedure. Specimens:none Drains:none Estimated blood loss: Less than 10 ml Implant: None Indications: Pleasant 63-year-old gentleman with severe activity limiting claudication with near rest pain equivalent. He had undergone CT angiogram. There was concern of SFA occlusions. The patient has signed the informed consent after reviewing risks, complications, benefits, and alternatives previously discussed with the patient. The patient was given the opportunity to ask any additional questions or voice any concerns. All questions were answered to the patient's satisfaction. Procedure in detail: Patient was brought to the angiography suite prior to which a time-out was called for patient identification and site verification. Bilateral groins were prepped and draped in the standard surgical fashion. Under ultrasound guidance right common femoral was punctured with micro puncture needle and wire. Subsequently a precision 5 English sheath was then placed. Bentson wire was advanced to the level of the aorta. 5 English Flush catheter w as brought up and parked at the level of the renal arteries. Aortogram was then undertaken. Catheter was brought down to the level of the iliac bifurcation. Iliacs were subsequently imaged. Catheter was then brought in up and over to the left side profundus. Runoff study was then undertaken. Right leg we shot the image through the sheath. We did right lower extremity runoff. No intervention was possible. At this time catheter wire sheath was removed. A CELT closure device was deployed. Adequate hemostasis was achieved. Patient tolerated the procedure well. Returned to recovery with stable vitals. Interpretation of films: 1. Ultrasound demonstrates appropriate femoral access site. Vessel was patent with minimal stenosis. Needle entry was visualized. Image of ultrasound was saved. 2. Aortogram demonstrates appropriate caliber aorta. Minimal disease. Appropriate take-off of the renals. 3. Iliac images demonstrate right common iliac had a moderate stenosis left side had normal flow through the iliacs although tortuous. 4. Left Leg Common femoral artery: Patent Profundus Femoris: No significant disease Superficial femoral artery: Total occlusion with above knee popliteal Popliteal artery (p1,p2,p3): Mild disease at the P2 segment Anterior tibial artery: Patent unable to visualize down to foot Peroneal artery: Patent unable to visualize down to foot Posterior tibial artery: Patent unable to visualize down to foot Dorsalis pedis/plantar arch: Incomplete 4. Right Leg Common femoral artery: Patent Profundus Femoris: No significant disease Superficial femoral artery: Total occlusion with reconstitution at below-knee popliteal Popliteal artery (p1,p2,p3): Reconstitutes at the P3 segment but unclear if this is true popliteal or a well-formed collateral. This goes down to the TP trunk Anterior tibial artery: Patent unable to visualize down to foot Peroneal artery: Patent unable to visualize down to foot Posterior tibial artery: Occluded Dorsalis pedis/plantar arch: Incomplete Conclusion: 1. Successful diagnostic angiogram. Left side will require fem above knee popliteal bypass. If required right lower extremity will require fem below-knee popliteal bypass with attention to inflow prior to procedure. 2. Anticoagulation status: No change This note is constructed using voice recognition software. While every effort has been made to ensure accuracy, health care marketing specialist errors may have been included. Thank you for allowing me to participate in the care of your patient. Yours sincerely, Kiet Ames MD, FACS, R.P.V.I.
== END 2024-06-02 11:05 | disposition home or self-care (01) ==
PROVIDERS: PCP Internal Medicine; Visit Provider Surgery Vascular Surgery
DX: I70.212 Atherosclerosis of native arteries of extremities with intermittent claudication, left leg (principal); M79.662 Pain in left lower leg; R20.0 Anesthesia of skin; R26.2 Difficulty in walking, not elsewhere classified; Z88.5 Allergy status to narcotic agent; Z79.82 Long term (current) use of aspirin; F17.210 Nicotine dependence, cigarettes, uncomplicated
CPT/HCPCS: 36247; 36415; 75630; 76937; 82565; 84520; 85025; 99152; C1760; C1769; C1887; C1894; J1644; J2250; J2310; J3010; Q9967

== ENCOUNTER → 2024-06-02 06:05 | Outpatient (BNV) | payer OTHER, SELFPAY | PROVIDERS: PCP Internal Medicine; Visit Provider Surgery Vascular Surgery | DX: I70.212 Atherosclerosis of native arteries of extremities with intermittent claudication, left leg (principal) | CPT/HCPCS: 36200; 75630; 76937; 99152 ==

== ENCOUNTER 2024-06-08 15:31 | Outpatient (AMB) | payer OTHER, SELFPAY ==
--- NOTE | 2024-06-08 15:35 | A.OFFVIS_ITS ---
Intake Visit Reasons: follow up Left Angio 06/02/24 Intake Note: 1 week follow up Left Leg diagnostic angio 06/02/24 Accompanied by: Self / Same As Patient Allergies acetaminophen [Percocet] Allergy (Intermediate, Verified 06/08/24 15:37) Vomiting oxycodone [From PERCOCET] Adverse Reaction (Unknown, Verified 06/08/24 15:37) NAUSEA & VOMITING HPI HPI follow up Left Angio 06/02/24: Details: Very pleasant 63-year-old gentleman presents for follow-up status post angiogram. He has severe activity limiting claudication. It is almost near a rest pain equivalent. He reports that the left is more painful than right. In terms of the procedure he had no postprocedure issues. He now presents for routine follow-up. Of note upon discussion with him he is able to climb a flight of stairs but does complain of leg pain and does have some mild shortness of breath. [facility] Social History Household Members Other:: lives alone Are you a primary career and transition teacher to a significant other at home: No Do you presently have visiting nurse or other home services: No Patient Tobacco Use Status: Current everyday Tobacco user Cigarettes Per Day: 10 Review of Systems Const All systems reviewed & are unremarkable except as noted in HPI and below Reports no additional complaints ENT Reports Normal hearing present Card Denies chest pain, Denies chest pain at rest, Denies chest pain with activity and Denies pedal edema Resp Denies cough GI Denies abdominal pain Musc Denies abnormal gait, Denies muscle cramps and Denies radiating pain into limb Skin/Breast Denies skin ulcer and Denies wounds Neuro Reports Normal hearing present and Denies abnormal gait Psych Reports no additional complaints Physical Exam Const General: cooperative, healthy appearing and comfortable Orientation/consciousness: oriented to person, oriented to place and oriented to time HEENT Head: Yes normal to inspection Neck Neck: Yes normal visual inspection Carotids: no bruits Chest Chest palpation & inspection: normal inspection of the chest Resp Effort & Inspection: normal respiratory effort and able to speak in complete sentences Auscultation: clear to auscultation bilaterally, no crackles, no rales, no rhonchi and no wheezes Cardio Other: Bilateral DP signals Rate: regular rate Rhythm: regular rhythm Heart sounds: S1 normal heart sound present and S2 normal heart sound present Bruits: no carotid bruits Peripheral pulses: Peripheral pulses 2+ throughout GI Inspection: Yes normal to inspection Skin Wounds: no wounds Hair: normal Neuro General: oriented to person, oriented to place and oriented to time Cranial nerves: Yes CN's II-XII intact bilaterally and Yes Normal hearing present Cognition (Neuro): normal cognition Motor exam (neuro): 5/5 motor strength present throughout Extrem Other: venous exam: No significant superficial varicosities or spider telangiectasias, minimal edema General: No clubbing, No cyanosis and No edema Psych Appearance: grossly normal Mental Status: mental status grossly normal Speech and movement: Normal speech and movement present Results Reviewed Results Reviewed: Angiogram from 06/02/2024 imaging was reviewed which demonstrates left SFA occlusion. Assessment & Plan Assessment & Plan (1) PAD (peripheral artery disease): Comment: 06/02/2024 - diagnostic angiogram Code(s): I73.9 - Peripheral vascular disease, unspecified Category: Medical Plan: Patient will require left femoral to above knee popliteal bypass. Risks benefits complications including bleeding infection, limb loss and were discussed in detail with the patient. Patient understood and consented and would like to move forward. He will require pulmonary and cardiac risk stratification prior to surgery. Thank you for allowing us to assist in his care. If there are any questions or concerns please do not hesitate to contact us. Coding Level of Care Code Est Pt Level 4 (63395) Complex EM visit Add On G2211 Diagnoses PAD (peripheral artery disease) I73.9
== END 2024-06-08 15:54 | disposition home or self-care (01) ==
PROVIDERS: PCP Internal Medicine; Visit Provider Surgery Vascular Surgery
DX: I73.9 Peripheral vascular disease, unspecified (principal)
CPT/HCPCS: 99214; G2211

== ENCOUNTER → 2024-06-08 15:31 | Outpatient (BNVA) | payer OTHER, SELFPAY | PROVIDERS: PCP Internal Medicine; Visit Provider Surgery Vascular Surgery | DX: I73.9 Peripheral vascular disease, unspecified (principal) | CPT/HCPCS: 99212 ==

== ENCOUNTER 2024-06-23 | Outpatient (REF) | payer OTHER, SELFPAY ==
[2024-06-23 10:12] VITALS: BP 157/77; PULSE 90; RESP 16; O2SAT 96; BMI 20.6
--- NOTE | 2024-06-23 10:32 | P.CONAN_ITS ---
HPI - Anesthesia Eval Consult details Narrative: 63yo M for Left Femoral Popliteal Bypass Graft, 09/06/24 Pending Cardiac and Pulmo clearance No recent illness No CP. SCOTT with walking flat COPD/Smoker: 1/2ppd x 35 years. Smoker's cough. Is not followed by pulmo regulary. No inhalers rx'd No ETOH PMFSH Active Problems Active Problems: All Active Problems PAD (peripheral artery disease) (Acute) Past Medical History Medical History (Updated 06/23/24 @ 11:38 by Lizandro Higginbotham MD) Smoker Neuropathy COPD (chronic obstructive pulmonary disease) Family History Family History (Updated 06/23/24 @ 11:03 by Mony Camargo CMA) Father Lung cancer Mother Alzheimer dementia Family history of problems with anesthesia: No Surgical History Surgical History History of laparotomy Hx of colonoscopy History of colon resection (2012) History of Problems with Anesthesia: No Social History Social History (Updated 06/23/24 @ 11:03 by Mony Camargo CMA) Household Members Other:: son Housing: House Are you a primary medicare insurance specialist to a significant other at home: No Do you presently have visiting nurse or other home services: No Alcohol intake: never Patient Tobacco Use Status: Current everyday Tobacco user Tobacco use type: Cigarette Cigarettes Per Day: 10 e-Cigarette/Vaping Use: Never Used Second Hand Smoke Exposure: No Meds Allergies Allergy/AdvReac Type Severity Reaction Status Date / Time oxycodone [From PERCOCET] AdvReac Severe NAUSEA & Verified 06/23/24 10:11 VOMITING Home Medications ?Medication ?Instructions ?Recorded ?Confirmed ?Last Taken ?Type acetaminophen 325 mg capsule 650 mg PO Q6H PRN Pain 06/23/24 06/23/24 Unknown History Exam Height,Weight and Vital Signs: Height 5 ft 11 in Weight 67.132 kg Last Vital Signs Pulse 90 06/23/24 10:12 Resp 16 06/23/24 10:12 BP 157/77 H 06/23/24 10:12 Pulse Ox 96 06/23/24 10:12 O2 Del Method Room Air 06/23/24 10:12 Airway Loose/Missing/Broken Teeth: Yes (Missing throughout, front 2 x lower teeth stable) Heart: RRR Lungs: Diminished upper lobes, lower clear Assessment and Plan Assessment Anesthesia Assessment: Anesthesia Plan Discussed, Smoking Cess. Discussed and PAT Visit Final Anesthetic Review Family History of Problems with Anesthesia: No History of Problems with Anesthesia: No
[2024-06-23 12:06] LABS: Hematocrit 45.8 % (42.0-52.0); Hemoglobin 15.2 g/dl (14.0-18.0); Mean Corpuscular HGB Conc 33.2 g/dl (31.0-36.0); Mean Corpuscular Volume 93.5 fL (80.0-98.0); Mean Platelet Volume 9.6 fL (9.4-12.4); Platelet Count 419 X10*3/uL (160-400); Red Cell Distribution Width 13.9 % (11.0-16.0); White Blood Count 7.8 X10*3/uL (4.8-10.8)
[2024-06-23 12:07] LABS: Prothrombin Time 11.2 SEC (10.9-12.4)
[2024-06-23 12:09] LABS: Partial Thromboplastin Time 28.9 SEC (26.0-36.8)
[2024-06-23 12:31] LABS: Alanine Aminotransferase 16 U/L (0-40); Albumin Level 4.2 g/dL (3.5-5.0); Alkaline Phosphatase 76 U/L (39-117); Anion Gap 14 (12-20); Aspartate Amino Transferase 20 U/L (5-37); Bilirubin Total 0.4 mg/dL (0.0-1.0); Blood Urea Nitrogen 10 mg/dL (9-16); Calcium 8.7 mg/dL (8.4-10.2); Carbon Dioxide 30 mmol/L (22-29); Chloride 99 mmol/L (96-108); Creatinine Clr Calc Pharmacy 108.5; Estimated Glomerular Filt Rate > 60; Glucose Random 100 mg/dL (60-115); Potassium 4.8 mmol/L (3.3-5.1); Sodium 138 mmol/L (135-145); Total Protein 7.9 g/dL (6.5-8.0)
== END 2024-06-23 00:01 | disposition home or self-care (01) ==
LOC: HO.PAT
PROVIDERS: Nurse Practitioner; PCP Internal Medicine; Visit Provider Surgery Vascular Surgery
DX: Z01.818 Encounter for other preprocedural examination (principal); I73.9 Peripheral vascular disease, unspecified
CPT/HCPCS: 36415; 80053; 85027; 85610; 85730

== ENCOUNTER 2024-06-23 10:56 | Outpatient (AMB) | payer OTHER, SELFPAY ==
--- NOTE | 2024-06-23 10:48 | A.OFFVIS_ITS ---
Vital Signs 06/23/24 10:58 Height 5 ft 11 in Weight 147 lb 11.355 oz BMI 20.6 BP 148/64 H Blood Pressure Location Lt brachial Position Sitting Pulse 100 Pulse Source Monitor Intake Visit Reasons: Preop/ Hui/ left fem bypass Professor Of Religion Required: No Accompanied by: Self / Same As Patient Allergies oxycodone [From PERCOCET] Adverse Reaction (Severe, Verified 06/23/24 10:11) NAUSEA & VOMITING Medication List - Last Reconciled 06/23/24 by Lizandro Higginbotham MD acetaminophen 650 mg PO Q6H PRN HPI Comments Details: Harry is here for consultation regarding preoperative risk stratification for vascular surgery. Per surgical notes, he is scheduled for left femoral to above-knee popliteal bypass. He denies any history of cardiovascular issues in the past including coronary disease or myocardial infarction or cardiomyopathy. He states that whenever he is walking, he can get claudication pains within a very short time, just few yards. He has not noticed any clear-cut angina or shortness of breath within limits of his activity but also he does not do much because of the claudication. Chronic smoker. Blood pressure seems to be on the higher side but he is not on any medications for that. [facility] Medical History (Updated 06/23/24 @ 11:38 by Lizandro Higginbotham MD) Smoker Neuropathy COPD (chronic obstructive pulmonary disease) Surgical History History of laparotomy Hx of colonoscopy History of colon resection (2012) Family History (Updated 06/23/24 @ 11:03 by Mony Camargo CMA) Father Lung cancer Mother Alzheimer dementia Social History (Updated 06/23/24 @ 11:03 by Mony Camargo CMA) Household Members Other:: son Housing: House Are you a primary resident care associate to a significant other at home: No Do you presently have visiting nurse or other home services: No 75 years or older and lives alone: No Alcohol intake: never Patient Tobacco Use Status: Current everyday Tobacco user Tobacco use type: Cigarette Cigarettes Per Day: 10 e-Cigarette/Vaping Use: Never Used Second Hand Smoke Exposure: No Review of Systems Const Denies chills, Denies fatigue, Denies fever(s), Denies weight gain and Denies weight loss ENT Denies dizziness Card Denies chest pain, Denies leg edema, Denies lightheadedness, Denies palpitations, Denies dyspnea on exertion, Denies orthopnea and Denies other Resp Denies cough and Denies dyspnea on exertion GI Denies hematochezia and Denies change in stool character Musc Denies abnormal gait, Denies muscle weakness, Denies numbness, Denies radiating pain into limb and Denies tingling Neuro Denies abnormal gait, Denies dizziness, Denies numbness and Denies tingling Endo Denies fatigue and Denies palpitations Physical Exam Vital Signs: Last Vital Signs Pulse 100 06/23/24 10:58 BP 148/64 H 06/23/24 10:58 BMI result Body Mass Index 20.6 Const General: comfortable and no acute distress Orientation/consciousness: patient oriented x3 HEENT Other: Unremarkable Head: Yes normal to inspection Neck Neck: Yes normal visual inspection Chest Chest palpation & inspection: normal inspection of the chest Resp Auscultation: clear to auscultation bilaterally Cardio Palpation: normal PMI Heart sounds: S1 normal heart sound present, S2 normal heart sound present, no gallops, Murmur heart sound present systolic II/ and at the right sternal border and no rubs GI Palpation (GI): Soft to palpation Back/Spine/Pelvis Other: unremarkable Skin General skin exam: no rashes or lesions noted Neuro General: patient oriented x3 Extrem General: Yes normal to inspection Psych Mental Status: mental status grossly normal Office Procedures EKG Details: EKG with underlying sinus rhythm at 100/Min; left atrial enlargement; right bundle-branch block pattern; [place] [id number], Complete Assessment & Plan Assessment & Plan (1) Preoperative cardiovascular examination: Code(s): Z01.810 - Encounter for preprocedural cardiovascular examination Category: Medical (2) PAD (peripheral artery disease): Comment: 06/02/2024 - diagnostic angiogram Code(s): I73.9 - Peripheral vascular disease, unspecified Category: Medical Plan Lower extremity CTA suggestive of extensive vascular disease. Minimal physical activity due to claudication. Hence he needs further workup with an echocardiogram/stress test. We will do pharmacological stress with Lexiscan. Addendum to follow after review of the above. He is on no medications on ideally needs a medical regimen as well. He can at least take low-dose aspirin. In the long run, he will benefit from blood pressure management, statins, smoking cessation if he is going to follow up with us. If not, to be handled through PCP. Orders: Orders CA lexiscan stress w shon Today I20.9 - Angina pectoris, unspecified, Z01.810 - Encounter for preprocedural cardiovascular examination CA echo transthoracic complete Today I25.10 - Atherosclerotic heart disease of [place] coronary artery without angina pectoris, Z01.810 - Encounter for preprocedural cardiovascular examination NM cardiolite stress test Today R07.2 - Precordial pain, Z01.810 - Encounter for preprocedural cardiovascular examination Coding Level of Care Code New Pt Level 4 (55038) Diagnoses Preoperative cardiovascular examination Z01.810 PAD (peripheral artery disease) I73.9 CPT Codes EKG - CPT: 41381-[id number], Complete ([id number])
[2024-06-23 10:58] VITALS: BP 148/64; PULSE 100; BMI 20.6
== END 2024-06-23 11:18 | disposition home or self-care (01) ==
PROVIDERS: PCP Internal Medicine; Visit Provider Internal Medicine
DX: Z01.810 Encounter for preprocedural cardiovascular examination (principal); I73.9 Peripheral vascular disease, unspecified
CPT/HCPCS: 93010; 99204

== ENCOUNTER → 2024-06-23 10:56 | Outpatient (BNVA) | payer OTHER, SELFPAY | PROVIDERS: PCP Internal Medicine; Visit Provider Internal Medicine | DX: Z01.810 Encounter for preprocedural cardiovascular examination (principal); I73.9 Peripheral vascular disease, unspecified; I45.10 Unspecified right bundle-branch block; R94.31 Abnormal electrocardiogram [ECG] [EKG] | CPT/HCPCS: 93005; 99202 ==

== ENCOUNTER → 2024-07-01 09:50 | Outpatient (REF) | payer OTHER, SELFPAY ==
--- NOTE | 2024-07-01 09:53 | CA_ITS ---
Acquisition Time: 2024-07-01 10:17:36 Total Exercise Time: 00:02:00 Test Indications: Screening for CAD,Pre-Op Evaluation Medications: NONE Protocol: LEXISCAN Max HR: 114 BPM 72% of Pred: 157 BPM Max BP: 136/74 mmHG Max Work Load: 1.0 METS Phatmacological stress test with Lexiscan while pt moves his arm in the chair, with reports of SOB, without any arrythmias, with normotensive response to injection. Nondiagnostic EKG for ischemia. In recovery, pt was treated with IVP Aminophylline to reverse Lexiscan after which pt feeling back to baseline. Nuclear images pending. Test reviewed with Dr. Higginbotham. Referred By: Lizandro Higginbotham Electronically Signed By: Nathan Corona
== END ==
LOC: HO.CARD 09:50
PROVIDERS: PCP Internal Medicine; Visit Provider Internal Medicine
DX: Z01.810 Encounter for preprocedural cardiovascular examination (principal); I20.9 Angina pectoris, unspecified; R07.2 Precordial pain
CPT/HCPCS: 93017; J0280; J2785

== ENCOUNTER → 2024-07-01 09:53 | Outpatient (BNV) | payer OTHER, SELFPAY | PROVIDERS: PCP Internal Medicine | DX: R06.02 Shortness of breath (principal) | CPT/HCPCS: 78452; 93016; 93018 ==

== ENCOUNTER → 2024-07-27 07:56 | Outpatient (REF) | payer OTHER, SELFPAY ==
--- NOTE | 2024-07-27 07:58 | CA_ITS ---
Transthoracic Echocardiogram Patient (Last, First, Middle): Harry Nelson P Gender: Male Date of : 1960 Age: 64 Procedure Date: 07/27/2024 Procedure Type: Transthoracic Echocardiogram Location: OP Height: 180.34 cm Weight: 68.04 kg BSA: 1.87 m2 Heart Rate: bpm BP: 138 / 80 mmHg Foreign Legal Consultant: JAMILA Referring MD: Lizandro Higginbotham MD Auto Body Mechanic Apprentice: Rg Guallpa MD Symptoms: I25.10 - Atherosclerotic heart disease of [place] coronary artery without... Study Quality: Fair, difficult acoustic windows ECG Rhythm: Sinus Conclusions: - 1. Normal LV ejection fraction of 60 65% with impaired relaxation filling pattern 2. Mild aortic stenosis 3. Normal RV systolic pressure with mildly elevated right atrial pressures 4. No gross pericardial effusion Findings Procedure Information The study quality is limited by patients body habitus. Left Ventricle Normal left ventricular size, thickness, and systolic function. The visually estimated ejection fraction is between 60-65%. Spectral Doppler is indicative of an impaired relaxation filling pattern. E/E prime ratio is between 8 and 15 consistent with indeterminate filling pressures. Right Ventricle Normal right ventricular cavity size and systolic function. Atria The left atrium is normal in size. Interatrial shunt cannot be excluded. The right atrium is normal in size. Aortic Valve The aortic valve was not well visualized. There is mild calcification of the aortic valve. There is mild aortic valve stenosis. There is no aortic valve regurgitation. possible bicuspid aortic valve Mitral Valve There is mild anterior and posterior mitral leaflet thickening. There is mild mitral annular calcification. There is trace mitral valve regurgitation. There is no mitral valve stenosis. Pulmonic Valve The pulmonic valve was not well visualized. Tricuspid Valve Likely normal tricuspid valve structure and function. The right ventricular systolic pressure is normal. The right ventricular systolic pressure is 30 mmHg. Mildly elevated right atrial pressure. There is no evidence of pulmonary hypertension. Great Vessels The pulmonary artery was not well visualized. There is no dilatation of the ascending aorta measuring 3.00 cm. Small plaque is seen in the ascending aorta. Venous The inferior vena cava is mildly dilated and collapses greater than 50% with inspiration. Pericardium/Pleural The pericardium was not well visualized. Prior Study Comparison Changes noted compared to prior study dated: 09/19/2021. mild aortic stenosis is present Measurements 2D Linear Measurements IVSd: 0.74 0.6-0.9/0.6-1.0 cm LVIDd: 4.15 3.9-5.3/4.2-5.9 cm LVIDd Index: 2.22 2.4-3.2/2.2-3.1 cm/m2 LVIDs: 2.46 2.0-3.6 cm LVPWd: 0.76 0.7-1.1 cm LA Diam: 3.20 2.7-3.8/3.0-4.0 cm LAIDs Index: 1.71 1.5-2.3 cm/m2 LV Mass: 113.34 67-162/88-224 g LV Mass Index: 60.61 43-95/49-115 g/m2 LVOT Diam: 2.10 3.0+(-)1.3 cm Mitral Valve MV Pk E: 0.75 MV PK A: 1.23 MV Decel Time: 258.00 E/A: 0.60 E'Lateral: 7.07 E'Medial: 5.87 E/E' Med: 12.70 E/E' Lat: 10.60 PHT: 76.00 MVA PHT: 2.89 Decel Moore: 2.89 Aortic Valve AoV Pk Chris: 2.03 AoV Mn Chris: 1.48 AoV VTI: 0.43 AoV Pk Grad: 16.00 Aov Mn Grad: 10.00 BARBARA Cont.VTI: 1.90 LVOT LVOT Pk Chris: 0.90 LVOT Mn Chris: 0.65 LVOT VTI: 0.23 LVOT Pk Grad: 3.00 LVOT Mn Grad: 2.00 LVOT Diam: 2.10 LVOT Area: 3.46 Diastolic Function MV Pk E: 0.75 MV Pk A: 1.23 E/A: 0.60 E'Medial: 5.87 E/E' Med: 12.70 E' Laterial: 7.07 E/E' Lat: 10.60 Right Ventricle TAPSE (mm): 24.80 TVS' Chris: 15.30 Tricuspid Valve TR Pk Chris: 2.32 TR Pk Grad: 22.00 RA Press: 8.00 RVSP: 30.00 Great Vessels Aorta Sinus of Valsalva: 3.04 2.0-3.[address] Ridge: 2.42 1.7-3.4 cm Ao Asc: 3.00 2.1-3.4 cm Updated in Other Vendor System with Status of Final Rg Guallpa MD electronically signed on 07/27/2024 5:10:24 PM with status of Final
== END ==
LOC: HO.CARD 07:56
PROVIDERS: PCP Internal Medicine; Visit Provider Internal Medicine
DX: Z01.810 Encounter for preprocedural cardiovascular examination (principal); I25.10 Atherosclerotic heart disease of native coronary artery without angina pectoris; J44.9 Chronic obstructive pulmonary disease, unspecified
CPT/HCPCS: 93306; 99202

== ENCOUNTER → 2024-07-27 07:58 | Outpatient (BNV) | payer OTHER, SELFPAY | PROVIDERS: PCP Internal Medicine; Visit Provider Internal Medicine Cardiovascular Disease | DX: I35.0 Nonrheumatic aortic (valve) stenosis (principal); I35.8 Other nonrheumatic aortic valve disorders; I70.0 Atherosclerosis of aorta | CPT/HCPCS: 93306 ==

== ENCOUNTER 2024-07-27 13:09 | Outpatient (AMB) | payer OTHER, SELFPAY ==
[2024-07-27 13:12] VITALS: BP 142/72; PULSE 91; O2SAT 95; BMI 20.4
--- NOTE | 2024-07-27 13:12 | A.OFFVIS_ITS ---
Vital Signs 07/27/24 13:12 Height 5 ft 11 in Weight 146 lb 9.718 oz BMI 20.4 BP 142/72 H Blood Pressure Location Rt brachial Position Sitting Pulse 91 Pulse Source Doppler Pulse Oximetry (%) 95 Oxygen Delivery Method Room Air Intake Visit Reasons: vascular sx/clearance Intake Note: 09/06 Allergies oxycodone [From PERCOCET] Adverse Reaction (Severe, Verified 07/27/24 13:18) NAUSEA & VOMITING HPI HPI vascular sx/clearance: Details: 64-year-old gentleman, active 30+ pack-year smoker, now being planned for left iliofemoral bypass referred for pulmonary perioperative evaluation. Patient states that he gets dyspnea after walking approximately 50 yd of 1 flight of stairs. He does state that his exertional limitation is more related to pain in his legs then to dyspnea. He is currently on no bronchodilator therapy. Patient denies prior personal or family history of lung disease. He also denies underlying environmental allergies. Patient was employed with no exposure to industrial dusts. Patient states that he has recent pulmonary function test at [facility]. He denies having recent chest imaging. He does have a dog as a pet. [facility] Medical History (Updated 07/27/24 @ 14:11 by Suhail Ochoa MD) Smoker Neuropathy COPD (chronic obstructive pulmonary disease) Surgical History History of laparotomy Hx of colonoscopy History of colon resection (2012) Family History (Updated 06/23/24 @ 11:03 by Mony Camargo CMA) Father Lung cancer Mother Alzheimer dementia Social History (Updated 07/27/24 @ 13:19 by Gladys Peters Clive) Household Members Other:: son Housing: House Are you a primary neonatal critical care nurse to a significant other at home: No Do you presently have visiting nurse or other home services: No 75 years or older and lives alone: No Alcohol intake: never Patient Tobacco Use Status: Current everyday Tobacco user Tobacco use type: Cigarette Cigarettes Per Day: 10 Years Smoked: Started age 21,1PPD e-Cigarette/Vaping Use: Never Used Second Hand Smoke Exposure: No Review of Systems Const Denies daytime sleepiness, Denies excessive sweating, Denies fatigue, Denies fever(s), Denies lethargy, Denies malaise, Denies night sweats, Denies snoring and Denies weight loss Eyes Denies blurry vision and Denies itchy eyes ENT Denies nasal congestion, Denies post nasal drip, Denies sinus pain, Denies sinus pressure and Denies other ( Thrush) Card Denies chest pain, Denies pedal edema, Denies dyspnea, Reports dyspnea on exertion, Denies orthopnea and Denies paroxysmal nocturnal dyspnea Resp Denies cough, Denies hemoptysis, Denies excessive phlegm production, Denies dyspnea, Reports dyspnea on exertion, Denies snoring and Denies wheezing GI Denies abdominal pain and Denies heartburn Musc Denies myalgias, Denies arthralgias and Denies joint swelling Skin/Breast Denies rash Neuro Denies memory loss and Denies seizure-like activity Psych Denies abnormal sleep pattern, Denies anxiety and Denies memory loss Endo Denies excessive sweating, Denies fatigue and Denies heat intolerance Darío/Lymph Denies easy bruising Aller/Immun Denies itchy eyes, Denies seasonal rhinorrhea and Denies wheezing Physical Exam Vital Signs: Last Vital Signs Pulse 91 07/27/24 13:12 BP 142/72 H 07/27/24 13:12 Pulse Ox 95 07/27/24 13:12 Oxygen Delivery Method Room Air 07/27/24 13:12 BMI result Body Mass Index 20.4 Const General: no acute distress and alert Nutritional Appearance: not obese Orientation/consciousness: Other orientation findings ( oriented) HEENT Head: Yes atraumatic Eyes General: appearance normal, both eyes and all related structures Sclerae: sclerae normal EOM: EOMs intact bilaterally Neck Neck: Yes supple Lymphatic: no lymphadenopathy noted Resp Effort & Inspection: normal respiratory effort and no use of accessory muscles Auscultation: clear to auscultation bilaterally Cardio Rate: regular rate Rhythm: regular rhythm Heart sounds: no gallops, no murmurs and no rubs Skin General skin exam: other ( warm) Extrem General: No clubbing, No cyanosis and No edema Assessment & Plan Assessment & Plan (1) Encounter for preoperative pulmonary examination: Code(s): Z01.811 - Encounter for preprocedural respiratory examination Category: Medical Plan: At this time patient is at low risk for pulmonary perioperative complications for the proposed peripheral vascular bypass under general anesthesia. (2) COPD (chronic obstructive pulmonary disease): Code(s): J44.9 - Chronic obstructive pulmonary disease, unspecified Category: Medical Plan: Likely underlying COPD of unclear severity. Will obtain results of pulmonary function testing from [facility]. Will start on empiric Anoro. (3) Smoker: Code(s): F17.200 - Nicotine dependence, unspecified, uncomplicated Category: Social Hx Plan: 30+ pack-year active smoker, will obtain lung cancer screening CT chest. Orders: Orders CT lung screening Today F17.200 - Nicotine dependence, unspecified, uncomplicated Medications: New umeclidinium-vilanterol 62.5-25 mcg/actuation (Anoro Ellipta) 1 inh inhalation DAILY 1 ea 6RF F17.200 - Nicotine dependence, unspecified, uncomplicated Coding Level of Care Code New Pt Level 4 (33746) Diagnoses Encounter for preoperative pulmonary examination Z01.811 COPD (chronic obstructive pulmonary disease) J44.9 Smoker F17.200
== END 2024-07-27 13:54 | disposition home or self-care (01) ==
LOC: HO.HPS 13:10
PROVIDERS: PCP Internal Medicine; Visit Provider Internal Medicine Pulmonary Disease
DX: Z01.811 Encounter for preprocedural respiratory examination (principal); J44.9 Chronic obstructive pulmonary disease, unspecified; F17.200 Nicotine dependence, unspecified, uncomplicated
CPT/HCPCS: 99204

== ENCOUNTER 2024-09-06 07:19 | Inpatient (IN) | payer OTHER, SELFPAY ==
[2024-08-23 12:26] VITALS: BMI 20.6
--- NOTE | 2024-08-26 13:00 | P.CONAN_ITS ---
Documented by User: Mandy Mcbride NP 09/02/24 14:56 HPI - Anesthesia Eval Consult details Narrative: 64yo M for Left Femoral Popliteal Bypass Graft, 09/06/24 [place] [facility] [place] risk stratify - low risk, likely COPD started on Anoro inhaler Pre[place] [facility] [place] - testing complete and ok'd to proceed with surgery No recent illness No CP. SCOTT with walking flat COPD/Smoker: 1/2ppd x 35 years. Smoker's cough. Is not followed by pulmo regulary. No inhalers rx'd No ETOH PAT eval 06/2024 prior to cardiac/pulmo evals PMFSH Active Problems Active Problems: All Active Problems Encounter for preoperative pulmonary examination (Acute) Smoker (Acute) COPD (chronic obstructive pulmonary disease) (Acute) Preoperative cardiovascular examination (Acute) PAD (peripheral artery disease) (Acute) Past Medical History Medical History Smoker Neuropathy COPD (chronic obstructive pulmonary disease) Family History Family History Father Lung cancer Mother Alzheimer dementia Family history of problems with anesthesia: No Surgical History Surgical History History of laparotomy Hx of colonoscopy History of colon resection (2012) History of Problems with Anesthesia: No Social History Social History Household Members: Other Household Members Other:: adult son Housing: House Are you a primary urgent care nurse practitioner to a significant other at home: No Do you presently have visiting nurse or other home services: No Alcohol intake: never Patient Tobacco Use Status: Current everyday Tobacco user Tobacco use type: Cigarette Cigarettes Per Day: 10 Years Smoked: Started age 21,1PPD e-Cigarette/Vaping Use: Never Used Second Hand Smoke Exposure: No Meds Allergies Allergy/AdvReac Type Severity Reaction Status Date / Time oxycodone [From PERCOCET] AdvReac Severe NAUSEA & Verified 07/27/24 13:18 VOMITING Home Medications ?Medication ?Instructions ?Recorded ?Confirmed ?Last Taken ?Type acetaminophen 325 mg capsule 650 mg PO Q6H PRN Pain 06/23/24 08/23/24 Unknown History Exam Height,Weight and Vital Signs: Height 5 ft 11 in Weight 67.132 kg Pertinent Lab Results Pertinent Lab Results: Lab Results 08/27/24 08/27/24 Range/Units 08:55 08:59 WBC 6.1 (4.8-10.8) X10*3/uL RBC 5.02 (4.60-5.80) X10*6/uL Hgb 16.0 (14.0-18.0) g/dl Hct 47.5 (42.0-52.0) % MCV 94.6 (80.0-98.0) fL MCH 31.9 (27.0-33.0) pg MCHC 33.7 (31.0-36.0) g/dl RDW 15.2 (11.0-16.0) % Plt Count 269 D (160-400) X10*3/uL MPV 9.7 (9.4-12.4) fL Absolute Nucleated RBC 0.000 (0.0-0.012) X10*3/uL Nucleated RBC % (auto) 0.0 (0.0-0.2) /100WBC PT 11.4 (10.9-12.4) SEC INR 1.0 (0.9-1.1) APTT 32.7 (26.0-36.8) SEC Sodium 134 L (135-145) mmol/L Potassium 4.2 (3.3-5.1) mmol/L Chloride 96 (96-108) mmol/L Carbon Dioxide 28 (22-29) mmol/L Anion Gap 14 (12-20) BUN 10 (9-16) mg/dL Creatinine 0.65 (0.5-1.4) mg/dL Estim Creat Clear Calc 110.4 Estimated GFR > 60 Random Glucose 115 (60-115) mg/dL Calcium 8.8 (8.4-10.2) mg/dL Blood Type O Positive Antibody Screen NEGATIVE Narrative Narrative: Pharmacological Nuclear stress test 07/01/24 1. Myocardial perfusion imaging study shows normal myocardial perfusion. 2. Gated LVEF is normal. 3. Transient ischemic dilatation not present Echo 07/27/24 Conclusions: - 1. Normal LV ejection fraction of 60 65% with impaired relaxation filling pattern 2. Mild aortic stenosis 3. Normal RV systolic pressure with mildly elevated right atrial pressures 4. No gross pericardial effusion EKG 06/23/24 SR with RBBB, cant exclude prior inferior infarct. Airway Loose/Missing/Broken Teeth: Yes (Missing throughout, front 2 x lower teeth stable) Heart: RRR Lungs: Diminished upper lobes, lower clear Assessment and Plan Assessment Anesthesia Assessment: Chart Reviewed Final Anesthetic Review Family History of Problems with Anesthesia: No History of Problems with Anesthesia: No Documented by User: Yasmine Deal MD 09/06/24 08:37 PMFSH Active Problems Active Problems: All Active Problems Encounter for preoperative pulmonary examination (Acute) Smoker (Acute) COPD- evaluated by [facility] 07/27/24. Started on inhaler Preoperative cardiovascular examination (Acute) PAD (peripheral artery disease) (Acute) BP high this morning. No documented h/o HTN. Not on anti- hypertensives Denies h/o CAD/DE - Echo/stress test negative Denies h/o TIA/CVA Smokers cough- wet sounding Past Medical History Medical History Smoker Neuropathy COPD (chronic obstructive pulmonary disease) Family History Family History Father Lung cancer Mother Alzheimer dementia Family history of problems with anesthesia: No Surgical History Surgical History History of laparotomy Hx of colonoscopy History of colon resection (2012) History of Problems with Anesthesia: No Social History Social History Household Members: Other Household Members Other:: adult son Housing: House Are you a primary urgent care nurse practitioner to a significant other at home: No Do you presently have visiting nurse or other home services: No Alcohol intake: never Patient Tobacco Use Status: Current everyday Tobacco user Tobacco use type: Cigarette Cigarettes Per Day: 10 Years Smoked: Started age 21,1PPD e-Cigarette/Vaping Use: Never Used Second Hand Smoke Exposure: No Meds Allergies Allergy/AdvReac Type Severity Reaction Status Date / Time oxycodone [From PERCOCET] AdvReac Severe NAUSEA & Verified 07/27/24 13:18 VOMITING Home Medications ?Medication ?Instructions ?Recorded ?Confirmed ?Last Taken ?Type acetaminophen 325 mg capsule 650 mg PO Q6H PRN Pain 06/23/24 08/23/24 Unknown History Exam Height,Weight and Vital Signs: Height 5 ft 11 in Weight 67.132 kg Vital Signs Temp Pulse Resp BP Pulse Ox O2 Del Method 09/06/24 06:43 98.6 F 100 18 167/88 H 91 L Room Air Airway Mallampati Class: II TM Dist: >3cm Neck ROM: Full Lungs: CTAB. No wheezing Assessment and Plan Assessment Anesthesia Assessment: Anesthesia Plan Discussed and Chart Reviewed Final Anesthetic Review Family History of Problems with Anesthesia: No History of Problems with Anesthesia: No NPO: Yes ASA Class: III Final Preanesthetic Review: No Changes in Pt Med Stat, Meds/Allgs Chart Reviewed, Consent Obtained/Reviewed and Anes Risks/Benef Reviewed Patient Risk: Intermediate Procedure Risk: High Assessment/Block/Sedation in SS: Assess/Block/Sedation-SS Anesthetic Plan Anesthetic Plan: GA Disposition: Standard PACU and Inp. Admit - ICU
[2024-08-27 09:49] LABS: Hematocrit 47.5 % (42.0-52.0); Mean Corpuscular HGB Conc 33.7 g/dl (31.0-36.0); Mean Corpuscular Hemoglobin 31.9 pg (27.0-33.0); Mean Corpuscular Volume 94.6 fL (80.0-98.0); Mean Platelet Volume 9.7 fL (9.4-12.4); Platelet Count 269 X10*3/uL (160-400); Red Blood Count 5.02 X10*6/uL (4.60-5.80); Red Cell Distribution Width 15.2 % (11.0-16.0); White Blood Count 6.1 X10*3/uL (4.8-10.8)
[2024-08-27 09:58] LABS: Prothrombin Time 11.4 SEC (10.9-12.4)
[2024-08-27 10:00] LABS: Partial Thromboplastin Time 32.7 SEC (26.0-36.8)
[2024-08-27 10:19] LABS: Anion Gap 14 (12-20); Blood Urea Nitrogen 10 mg/dL (9-16); Calcium 8.8 mg/dL (8.4-10.2); Carbon Dioxide 28 mmol/L (22-29); Chloride 96 mmol/L (96-108); Creatinine Clr Calc Pharmacy 110.4; Estimated Glomerular Filt Rate > 60; Glucose Random 115 mg/dL (60-115); Potassium 4.2 mmol/L (3.3-5.1); Sodium 134 mmol/L (135-145)
[2024-09-06] VITALS (18 sets, daily range): BP systolic 124–175; BP diastolic 67–88; PULSE 69–116; RESP 18–31; TEMP 36.7–37; O2SAT 89–99; BMI 20.8
[2024-09-06] MEDS: Lactated Ringers 1,000 ML 100 ML IVCONT (06:34)
[2024-09-06] MEDS: Albuterol Sulfate (0.083%) 2.5 MG/3 ML VIAL.NEB INHALE (07:11)
--- NOTE | 2024-09-06 07:24 | MHC.SHP ---
Pre-Procedural Eval Section A - 24 Hr Update-Section A only Date of Service: 09/06/24 The patient is an INPATIENT: No Changes since office visit: Yes Patient answered all questions The patient has been examined within 24 hours of the surgical procedure. The History & Physical has been completed within 30 days and I have reviewed it.: Yes Section B - Complete if H&P > 30 days Chief Complaint: postop Allergies: Allergies Allergy/AdvReac Type Severity Reaction Status Date / Time oxycodone [From PERCOCET] AdvReac Severe NAUSEA & Verified 07/27/24 13:18 VOMITING Plan I have reviewed the history and physical and performed a pertinent physical examination on my patient. No changes have occurred unless specified. Time Spent With Patient Time: Total time managing care of this patient today ____ minutes.
[2024-09-06] MEDS: ceFAZolin Sodium/Dextrose,Iso 2 GM/50 ML PIGGYBACK IV ×2 (07:52→15:19)
--- NOTE | 2024-09-06 12:08 | PHA.MEDREC ---
Pharmacy Consult ? Medication Reconciliation Pharmacy has completed the medication reconciliation. Reviewed med rec done by nursing. Matches claims.
--- NOTE | 2024-09-06 12:13 | W.PM.OPN ---
Operative Note Operative Note Date of Service: 09/06/24 Narrative: Operative note by [facility] Preoperative diagnosis: Atherosclerosis with left lower extremity activity limiting claudication, severe pain Postoperative diagnosis: Same Procedure:1. Left femoral to above knee popliteal bypass Surgeon:Kiet Ames M.D. Manager Media Relations: Dr. Samaniego Anesthesia: General Specimens: 1 Drains: None Estimated blood loss: 300 mL Indications: Very pleasant 64-year-old gentleman presents for operative intervention regarding his left lower extremity. Severe peripheral vascular disease and obstruction of the SFA was identified on angiogram. He now presents for operative intervention. The patient has signed the informed consent after reviewing risks, complications, benefits, and alternatives previously discussed with the patient. The patient was given the opportunity to ask any additional questions or voice any concerns. All questions were answered to the patient's satisfaction. Procedure in detail: Patient was brought to the operating room prior to which a time-out was called for patient identification and site verification. Left leg was prepped and draped in a standard surgical fashion. Incision was carried out over the left common femoral artery. We were able to identify the left common femoral profundus femoris and SFA. This was encircled with silastic loops. We then made an above knee popliteal incision. This was done proximally 2-3 cm medial to the tibia. Went down through the fascial layer down to the popliteal artery. This had to be identified with Doppler. We were able to encircled this with silastic loops. At this point a tunnel was created. Once the tunnel was created 5000 units of systemic heparin was administered. During the procedure an additional 2000 units of heparin had to be administered as well. Once this was brought through we did 1st did the proximal anastomosis. We clamped down on the common femoral we made arteriotomy and we were able to circumferentially anastomosed a [place] Propaten 6 mm graft with a circumferential [place] suture CV 5. Prior to closure this was flushed clear. Once it was completely closed an additional suture had to be placed to make sure there was adequate hemostasis. Once this was all accomplished we then tunneled the graft through. We then got proximal and distal control of the above knee popliteal. We made arteriotomy. It was very calcified. We made an initial anastomosis and at completion we did not get a good signal. We took the graft down and we re-did the anastomosis but prior to this we did a local endarterectomy of the popliteal artery. Once this was accomplished we reanastomosed with a [place] CV 6 suture. Prior to closure this was flushed clear. Upon completion we were able to close this. Distal to that we were able to get an excellent signal and with the graft was closed it was a clear difference in the signal. Once this was all accomplished the entire area was irrigated out in both incisions. We placed Vistaseal in both the proximal and distal anastomosis. Deep layer was reapproximated using 2-0 Polysorb superficial layer with 3-0 poly Sorb the skin incision site was infiltrated with local and then we closed with verna. At the end the case sponge instrument counts were correct. Patient tolerated the procedure well. Returned to recovery with stable vitals. This note is constructed using voice recognition software. While every effort has been made to ensure accuracy, forensic materials engineer errors may have been included. Thank you for allowing me to participate in the care of your patient. Yours sincerely, Kiet Ames MD, FACS, R.P.V.I.
[2024-09-06] MEDS: Albuterol/Iprat 2.5/0.5MG 3 ML AMPUL.NEB INHALE (12:15)
--- NOTE | 2024-09-06 13:45 | P.HPCC_ITS ---
History of Present Illness Date of Service: 09/06/24 Chief Complaint: Status post elective fem pop bypass 64-year-old gentleman with underlying COPD, PVD, now postoperative day 0 after an elective left fem-pop bypass, now being monitored in the intensive care unit. Recovering well. Review of Systems 2 Constitutional: Constitutional: Denies daytime sleepiness, Denies excessive sweating, Denies fatigue, Denies fever(s), Denies lethargy, Denies malaise, Denies night sweats, Denies snoring and Denies weight loss Eyes: Eyes: Denies blurry vision and Denies itchy eyes ENT: Denies nasal congestion, Denies post nasal drip, Denies sinus pain, Denies sinus pressure and Denies other ( Thrush) Cardiovascular: Cardiovascular: Denies chest pain, Denies pedal edema, Denies dyspnea, Denies orthopnea and Denies paroxysmal nocturnal dyspnea Respiratory: Respiratory: Denies cough, Denies hemoptysis, Denies excessive phlegm production, Denies dyspnea, Denies snoring and Denies wheezing Gastrointestinal: Gastrointestinal: Denies abdominal pain and Denies heartburn Musculoskeletal: Musculoskeletal: Denies myalgias, Denies arthralgias and Denies joint swelling Integumentary/Breasts: Skin/Breast: Denies rash Neurologic: Denies memory loss and Denies seizure-like activity Psychiatric: Psychiatric: Denies abnormal sleep pattern, Denies anxiety and Denies memory loss Endocrine: Endocrine: Denies excessive sweating, Denies fatigue and Denies heat intolerance Hematologic/Lymphatic: Hematologic/Lymphatic: Denies easy bruising Allergic/Immunologic: Allergic/Immunologic: Denies itchy eyes, Denies seasonal rhinorrhea and Denies wheezing PMFSH Past Medical History Medical History Smoker Neuropathy COPD (chronic obstructive pulmonary disease) Family History Family History Father Lung cancer Mother Alzheimer dementia Surgical History Surgical History History of laparotomy Hx of colonoscopy History of colon resection (2012) Social History Social History Household Members: Other Household Members Other:: adult son Housing: House Are you a primary acute care occupational therapist to a significant other at home: No Do you presently have visiting nurse or other home services: No Alcohol intake: never Patient Tobacco Use Status: Current everyday Tobacco user Tobacco use type: Cigarette Cigarettes Per Day: 10 Years Smoked: Started age 21,1PPD Smoked in Last 30 Days: Yes e-Cigarette/Vaping Use: Never Used Patient Interested in Nicotine Replacement: Yes Second Hand Smoke Exposure: No Use of substances other than those prescribed or required for medical reasons: No Have you been hit, kicked, punched, or otherwise hurt by someone within the past year? If so, by whom?: No Are you DNR?: No Advance Directives: No Advance Directives Information Provided: Yes Advance Directives on File: No Poor oral hygiene: Yes (no teeth on top, 4 teeth on bottom stable) Meds Allergies Allergy/AdvReac Type Severity Reaction Status Date / Time oxycodone [From PERCOCET] AdvReac Severe NAUSEA & Verified 07/27/24 13:18 VOMITING Active Medications: Current Medications Acetaminophen (Acetaminophen 325 Mg Tablet) 650 mg PO Q6H PRN PRN Reason: Pain, Mild 1-3,fever,headache Albuterol Sulfate (Albuterol Sulfate (0.083%) 2.5 Mg/3 Ml Vial.Neb) 2.5 mg INHALE ONCE PRN PRN Reason: Shortness of Breath/Wheezing Last Admin: 09/06/24 07:11 Dose: 2.5 mg Albuterol/Ipratropium (Albuterol/Iprat 2.5/0.5mg 3 Ml Ampul.Neb) 3 ml INHALE ONCE PRN PRN Reason: Bronchospasm/wheezing Stop: 09/06/24 14:39 Calcium Carbonate (Calcium Carbonate 750 Mg Tab.Chew) 750 mg PO Q4H PRN PRN Reason: Heartburn Sodium Chloride (Ns) 1,000 mls @ 80 mls/hr IVCONT .[id number] MANUEL Cefazolin Sodium/Dextrose (Ancef) 2 gm in 50 mls @ 100 mls/hr IV POSTOP ONE Stop: 09/06/24 14:29 Magnesium Hydroxide (Milk Of Magnesia 30 Ml Oral.Susp) 30 ml PO DAILY PRN PRN Reason: Constipation Melatonin (Melatonin 3 Mg Tablet) 6 mg PO BEDTIME PRN PRN Reason: Insomnia Morphine Sulfate (Morphine Sulfate 2 Mg/Ml Cartridge) 2 mg IVPUSH Q4H PRN; Protocol PRN Reason: Pain, Severe (Pain Scale 7-10) Naloxone HCl (Naloxone Hcl 0.4 Mg/Ml Vial) 0.04 mg IVPUSH Q5M PRN PRN Reason: Excessive sedation or RR < 8 Ondansetron HCl (Ondansetron Hcl 4 Mg/2 Ml Vial) 4 mg IVPUSH ONCE PRN PRN Reason: Nausea and Vomiting Stop: 09/06/24 14:38 Oxycodone HCl (Oxycodone Hcl Immed Release 5 Mg Tablet) 5 mg PO Q4H PRN PRN Reason: Pain, Moderate(Pain Scale 4-6) Sodium Chloride (0.9 % Sodium Chloride Flush 3 Ml Syringe) 3 ml IVFLUSH QSHIFT MANUEL Tramadol HCl (Tramadol Hcl 50 Mg Tablet) 25 mg PO ONCE PRN PRN Reason: Pain, Moderate(Pain Scale 4-6) Home Medications ?Medication ?Instructions ?Recorded ?Confirmed ?Last Taken ?Type acetaminophen 325 mg capsule 650 mg PO Q6H PRN Pain 06/23/24 08/23/24 Unknown History Physical Exam 2 Vital Signs: Vital Signs: Last Vital Signs Temp 98.1 F 09/06/24 11:48 Pulse 93 09/06/24 12:30 Resp 28 H 09/06/24 12:30 BP 148/76 H 09/06/24 12:30 Pulse Ox 99 09/06/24 12:30 O2 Del Method Room Air 09/06/24 12:30 O2 Flow Rate 3 09/06/24 12:15 BMI result Body Mass Index 20.8 Const: General: no acute distress and alert Nutritional Appearance: not obese Orientation/consciousness: Other orientation findings ( oriented) HEENT: Head: Yes atraumatic Eyes: General: appearance normal, both eyes and all related structures S clerae: sclerae normal EOM: EOMs intact bilaterally Neck: Neck: Yes supple Lymphatic: no lymphadenopathy noted Resp: Effort & Inspection: normal respiratory effort and no use of accessory muscles Auscultation: clear to auscultation bilaterally Cardio: Rate: regular rate Rhythm: regular rhythm Heart sounds: no gallops, no murmurs and no rubs GI: Palpation (GI): Soft to palpation and Other GI palpation findings present ( Nontender) Auscultation: normal bowel sounds Skin: General skin exam: other ( warm) Extrem: Other: Left femoral access site without hematoma General: No clubbing, No cyanosis and No edema Results Labs 08/27/24 08:59 08/27/24 08:59 Assessment and Plan (1) COPD (chronic obstructive pulmonary disease): Status: Acute (2) PAD (peripheral artery disease): Status: Acute (3) Status post femoral-popliteal bypass surgery: Status: Acute Plan Assessment: 64-year-old gentleman with underlying COPD and PID now postoperative day 0 after an elective left fem-pop bypass, being monitored in intensive care unit. Plan: Neuro: No acute issues. Cardiac: Postoperative day 0 after an elective fem-pop bypass. Recovering well. Vascular surgery service care appreciated. Maintain systolic blood pressure under 160. Underlying PVD. Pulmonary: No acute issues. Underlying COPD. Renal: No acute issues. Endo: No acute issues. GI: No acute issues. ID: No acute issues Heme/Onc: No acute issues. Psych: No acute issues. Miscellaneous: No acute issues. Prophylaxis: Per vascular surgery Diet: Regular
[2024-09-06] MEDS: 0.9 % Sodium Chloride 1,000 ML 80 ML IVCONT (14:54)
--- NOTE | 2024-09-06 19:16 | PC.NURSE ---
Neuro: patient admitted to unit from PACU at 1310, oriented to unit, alert and oriented x4, flat affect at times, pleasant.? Cardiac: SA, SR to ST, BP slightly elevated but below 160 systolic, MD aware Resp:lungs diminished upper lobes bilaterally and clear lower lobes, placed on 4L of O2 on arrival, Due to O2 Sat 78, increased to 93% after 30 minutes, decreased to 2L and maintaining 88-92% GI/: Tolerating regular Diet well, leon draining clear yellow urine.? Integumentary/Musculoskeletal: Allyvn dressing to left groin and knee, small blood noted on groin and marked on dressing
[2024-09-06] MEDS: Acetaminophen 325 MG TABLET 650 MG PO (23:59)
[2024-09-07] VITALS (14 sets, daily range): BP systolic 133–161; BP diastolic 67–92; PULSE 84–100; RESP 18–25; TEMP 36.2–37.3; O2SAT 89–94; BMI 21.6
[2024-09-07] MEDS: 0.9 % Sodium Chloride 1,000 ML 80 ML IVCONT (02:22)
--- NOTE | 2024-09-07 05:13 | PC.NURSE ---
s/p fem pop bypass, assessing pulses on affected extremity q4h. It is noted that DP and PT pulses are very faint even via doppler, more notable on PT site, but they seem to be slightly stronger toward the end of the shift. Patient continues to feel some numbness on the leg, which he claims is normal for him, but states that he feels better after the procedure. No sign of hematoma noted. PRN Tylenol was given once per his request due to mild headache and back pain which also seems to be chronic. Patient required 2-3L oxygen throughout the night, maintaining >89% O2 Sat without any sign of respiratory distress or desaturation. Patient does have occasional bronchial cough that also seems to be common for him. NS 80cc/hr running continuously.
[2024-09-07 05:34] LABS: Basophils Percent Auto 0.3 % (0-2); Eosinophils Percent Auto 0.4 % (0-4); Hematocrit 39.6 % (42.0-52.0); Hemoglobin 13.7 g/dl (14.0-18.0); Imm Gran Abs Auto 0.04 X10*3/uL (0.00-0.03); Imm Gran Pct Auto 0.4 % (0.0-0.4); Lymphocytes Absolute Auto 1.2 X10*3/uL (1.2-4.9); Lymphocytes Percent Auto 11.7 % (20-40); MANUAL DIFF FLAG NO; Mean Corpuscular HGB Conc 34.6 g/dl (31.0-36.0); Mean Corpuscular Hemoglobin 32.7 pg (27.0-33.0); Mean Corpuscular Volume 94.5 fL (80.0-98.0); Mean Platelet Volume 9.2 fL (9.4-12.4); Monocytes Absolute Auto 1.2 X10*3/uL (0.1-1.2); Monocytes Percent Auto 11.7 % (2-11); Neutrophils Absolute Auto 7.9 x10*3/uL (2.0-8.3); Neutrophils Percent Auto 75.5 % (45-73); Platelet Count 228 X10*3/uL (160-400); Red Blood Count 4.19 X10*6/uL (4.60-5.80); Red Cell Distribution Width 15.5 % (11.0-16.0); White Blood Count 10.4 X10*3/uL (4.8-10.8)
[2024-09-07 05:58] LABS: Anion Gap 11 (12-20); Blood Urea Nitrogen 10 mg/dL (9-16); Calcium 8.1 mg/dL (8.4-10.2); Carbon Dioxide 29 mmol/L (22-29); Chloride 101 mmol/L (96-108); Creatinine Clr Calc Pharmacy 109.3; Estimated Glomerular Filt Rate > 60; Glucose Random 141 mg/dL (60-115); Potassium 4.2 mmol/L (3.3-5.1); Sodium 137 mmol/L (135-145)
[2024-09-07 06:00] LABS: Albumin Level 3.4 g/dL (3.5-5.0); Phosphorus 3.2 mg/dL (2.7-4.5)
--- NOTE | 2024-09-07 08:18 | HO.POSTANES ---
Post Anesthesia Evaluation Post Anesthesia Evaluation Date of Service: 09/07/24 Vital Signs: Vital Signs Temp Pulse Resp BP Pulse Ox O2 Del Method O2 Flow Rate 09/07/24 08:00 92 18 161/79 H 89 L Nasal Cannula 3 09/07/24 07:29 97.1 F 09/07/24 07:00 84 18 154/83 H 94 Nasal Cannula 3 09/07/24 06:00 88 25 H 152/82 H 94 Nasal Cannula 3 09/07/24 05:00 84 24 H 150/89 H 93 Nasal Cannula 3 09/07/24 04:00 98.1 F 89 25 H 147/92 H 94 Nasal Cannula 3 09/07/24 03:00 86 23 H 133/73 92 Nasal Cannula 3 09/07/24 01:58 86 23 H 150/85 H 92 Nasal Cannula 3 09/07/24 01:00 92 25 H 144/75 H 93 Nasal Cannula 3 09/07/24 00:00 98.1 F 92 25 H 157/78 H 93 Nasal Cannula 3 09/06/24 22:53 87 19 134/71 92 Nasal Cannula 3 09/06/24 21:57 90 24 H 140/72 H 91 L Nasal Cannula 3 09/06/24 21:00 97 24 H 140/72 H 89 L Nasal Cannula 3 Anesthesia: General Endotracheal-GETA Mental Status: Awake Pain Control: Satisfactory Nausea/Vomiting: None Hydration: Adequate Anesthesia-Related Issues: No Anes. Related Issues
[2024-09-07] MEDS: Acetaminophen 325 MG TABLET 650 MG PO (08:34)
--- NOTE | 2024-09-07 09:57 | MHC.CM.PN ---
Met w/pt to review d/c planning: pt lives alone, has no services and is independent w/all care needs. He states he sees a new provider after Dr. Clay retired but cannot recall the name. Pt will contact his friend in [place] for transportation to home: may need to d/c in the afternoon to ensure his friend has time to arrive. No barriers to care and no additional needs anticipated.
--- NOTE | 2024-09-07 10:10 | P.PNCC_ITS ---
Subjective Subjective Date of Service: 09/07/24 Interval History: 64-year-old gentleman with underlying COPD, PVD, now postoperative day 1 after an elective left fem-pop bypass, now being monitored in the intensive care unit. Recovering well. No events overnight. Critical Care Time (minutes): 0 Physical Exam 2 Vital Signs: Vital Signs: Last Vital Signs Temp 97.1 F 09/07/24 07:29 Pulse 95 09/07/24 09:00 Resp 25 H 09/07/24 09:00 BP 156/87 H 09/07/24 09:00 Pulse Ox 90 L 09/07/24 09:00 O2 Del Method Nasal Cannula 09/07/24 09:00 O2 Flow Rate 3 09/07/24 09:00 BMI result Body Mass Index 21.6 Const: General: no acute distress, alert and awake Eyes: Sclerae: sclerae normal EOM: EOMs intact bilaterally Neck: Neck: Yes no lymphadenopathy, Yes trachea midline and Yes supple Resp: Effort & Inspection: normal respiratory effort and no respiratory distress Auscultation: clear to auscultation bilaterally Cardio: Rate: regular rate Rhythm: regular rhythm Heart sounds: no gallops, no murmurs and no rubs GI: Palpation (GI): Soft to palpation and Other GI palpation findings present ( Nontender) Auscultation: normal bowel sounds Extrem: Other: Left femoral access site without hematoma. General: Yes no pedal edema, No clubbing and No cyanosis Objective Data Labs 09/07/24 05:21 09/07/24 05:21 Labs: Laboratory Results - last 24 hr 09/07/24 05:21 WBC 10.4 RBC 4.19 L Hgb 13.7 L Hct 39.6 L MCV 94.5 MCH 32.7 MCHC 34.6 RDW 15.5 Plt Count 228 MPV 9.2 L Immature Gran % (Auto) 0.4 Neut % (Auto) 75.5 H Lymph % (Auto) 11.7 L [place] % (Auto) 11.7 H Eos % (Auto) 0.4 Baso % (Auto) 0.3 Lymph # (Auto) 1.2 [place] # (Auto) 1.2 Eos # (Auto) 0.0 Baso # (Auto) 0.0 Abs Immat Gran (auto) 0.04 H Absolute Neuts (auto) 7.9 Absolute Nucleated RBC 0.000 Nucleated RBC % (auto) 0.0 Sodium 137 Potassium 4.2 Chloride 101 Carbon Dioxide 29 Anion Gap 11 L BUN 10 Creatinine 0.66 Estim Creat Clear Calc 109.3 Estimated GFR > 60 Random Glucose 141 H Calcium 8.1 L D Phosphorus 3.2 Magnesium 2.0 Albumin 3.4 L Progress Note: A&P Assessment and plan (1) Status post femoral-popliteal bypass surgery: Status: Acute (2) PAD (peripheral artery disease): Status: Acute (3) COPD (chronic obstructive pulmonary disease): Status: Acute Plan Assessment: 64-year-old gentleman with underlying COPD and PID now postoperative day 1 after an elective left fem-pop bypass, being monitored in intensive care unit. Plan: Neuro: No acute issues. Cardiac: Postoperative day 1 after an elective fem-pop bypass. Recovering well. Vascular surgery service care appreciated. Maintain systolic blood pressure under 160. Underlying PVD. Pulmonary: No acute issues. Underlying COPD. Renal: No acute issues. Endo: No acute issues. GI: No acute issues. ID: No acute issues Heme/Onc: No acute issues. Psych: No acute issues. Miscellaneous: No acute issues. Prophylaxis: Per vascular surgery Diet: Regular Quality Stroke Does the patient have a stroke diagnosis?: No VTE Prior VTE?: No VTE Risk Level:: Medical - moderate - high VTE Device Contraindication: Treatment Not Indicated VTE Drug Contraindication: N/A - Med Ordered
--- NOTE | 2024-09-07 10:23 | P.PNVS_ITS ---
Subjective Subjective Date of Service: 09/07/24 Patient reports: no new complaints and feels better Interval history: 64-year-old gentleman postop day 1 status post left fem-pop. Doing extremely well. Reports no significant issues overnight. He does have some left lower extremity pain which is expected postop pain. Addition he reports that the pain and numbness he had of the left foot preoperatively is gone. H&H is stable He is currently being maintained in the ICU. Tolerating a diet. Physical Exam Vital Signs: Vital Signs: Last Vital Signs Temp 97.1 F 09/07/24 07:29 Pulse 95 09/07/24 09:00 Resp 25 H 09/07/24 09:00 BP 156/87 H 09/07/24 09:00 Pulse Ox 90 L 09/07/24 09:00 O2 Del Method Nasal Cannula 09/07/24 09:00 O2 Flow Rate 3 09/07/24 09:00 BMI result Body Mass Index 21.6 Const: General: cooperative, healthy appearing and comfortable Orientati on/consciousness: oriented to person, oriented to place and oriented to time HEENT: Head: Yes normal to inspection Neck: Neck: Yes normal visual inspection Carotids: no bruits Chest: Chest palpation & inspection: normal inspection of the chest Resp: Effort & Inspection: normal respiratory effort and able to speak in complete sentences Auscultation: clear to auscultation bilaterally, no crackles, no rales, no rhonchi and no wheezes Cardio: Rate: regular rate Rhythm: regular rhythm Heart sounds: S1 normal heart sound present and S2 normal heart sound present Bruits: no carotid bruits Peripheral pulses: Peripheral pulses 2+ throughout GI: Inspection: Yes normal to inspection Skin: Other: Left groin and thigh incisions are well healed Wounds: no wounds Hair: normal Neuro: General: oriented to person, oriented to place and oriented to time Cranial nerves: Yes CN's II-XII intact bilaterally and Yes Normal hearing present Cognition (Neuro): normal cognition Motor exam (neuro): 5/5 motor strength present throughout Extrem: Other: venous exam: No significant superficial varicosities or spider telangiectasias, minimal edema General: No clubbing, No cyanosis and No edema Psych: Appearance: grossly normal Mental Status: mental status grossly normal Speech and movement: Normal speech and movement present Progress Note: A&P Assessment and plan (1) PAD (peripheral artery disease): Status: Acute Assessment and Plan: In short patient is doing extremely well status post left fem-pop bypass. Will maintain bed rest for today. Continue pain control. Stable for transfer up to [facility] floor. Thank you to the dicer machine operator for their assistance in his care. Time Spent With Patient Time: Total time managing care of this patient today ____ minutes. Procedures Date of Service Date of Service: 09/07/24 Quality Stroke Does the patient have a stroke diagnosis?: No VTE Prior VTE?: No VTE Risk Level:: Medical - moderate - high VTE Device Contraindication: Treatment Not Indicated VTE Drug Contraindication: N/A - Med Ordered
--- NOTE | 2024-09-07 11:39 | PC.NURSE ---
Pt received from the ICU into 374. Pt oriented to the room and call moore system. VS sable on arrival. Bilateral +DP and +PTP present with Doppler only as reported by prior RN. bilateral feet cool skin dry and flacky nails over grown
[2024-09-07] MEDS: Heparin Sodium,Porcine 5,000 UNIT/ML VIAL 5000 UNIT SUBCUT ×2 (14:57→22:52)
[2024-09-07] MEDS: traMADoL HCL 50 MG TABLET 25 MG PO (15:07)
[2024-09-07] MEDS: 0.9 % Sodium Chloride Flush 3 ML SYRINGE IVFLUSH ×2 (15:10→19:34)
[2024-09-07] MEDS: Morphine Sulfate 2 MG/ML CARTRIDGE IVPUSH (19:33)
[2024-09-08] MEDS: Morphine Sulfate 2 MG/ML CARTRIDGE IVPUSH (01:31)
[2024-09-08 04:00] VITALS: BP 156/74; PULSE 90; RESP 20; TEMP 37.2; O2SAT 94
[2024-09-08 06:01] LABS: MANUAL DIFF FLAG NO
[2024-09-08 06:22] LABS: Albumin Level 3.7 g/dL (3.5-5.0); Anion Gap 9 (12-20); Blood Urea Nitrogen 10 mg/dL (9-16); Calcium 8.6 mg/dL (8.4-10.2); Carbon Dioxide 29 mmol/L (22-29); Chloride 96 mmol/L (96-108); Creatinine Clr Calc Pharmacy 127.2; Estimated Glomerular Filt Rate > 60; Glucose Random 105 mg/dL (60-115); Magnesium 1.8 mg/dL (1.6-2.6); Potassium 3.8 mmol/L (3.3-5.1); Sodium 130 mmol/L (135-145)
[2024-09-08] MEDS: Heparin Sodium,Porcine 5,000 UNIT/ML VIAL 5000 UNIT SUBCUT ×3 (06:24→22:28)
[2024-09-08 06:26] LABS: Basophils Absolute Auto 0.1 X10*3/uL (0.0-0.2); Basophils Percent Auto 0.6 % (0-2); Eosinophils Percent Auto 0.4 % (0-4); Hematocrit 40.5 % (42.0-52.0); Hemoglobin 13.8 g/dl (14.0-18.0); Imm Gran Abs Auto 0.05 X10*3/uL (0.00-0.03); Imm Gran Pct Auto 0.5 % (0.0-0.4); Lymphocytes Absolute Auto 1.1 X10*3/uL (1.2-4.9); Lymphocytes Percent Auto 9.9 % (20-40); Mean Corpuscular HGB Conc 34.1 g/dl (31.0-36.0); Mean Corpuscular Hemoglobin 31.7 pg (27.0-33.0); Mean Corpuscular Volume 93.1 fL (80.0-98.0); Mean Platelet Volume 9.6 fL (9.4-12.4); Monocytes Absolute Auto 1.4 X10*3/uL (0.1-1.2); Monocytes Percent Auto 12.5 % (2-11); Neutrophils Absolute Auto 8.3 x10*3/uL (2.0-8.3); Neutrophils Percent Auto 76.1 % (45-73); Platelet Count 234 X10*3/uL (160-400); Red Blood Count 4.35 X10*6/uL (4.60-5.80); Red Cell Distribution Width 15.1 % (11.0-16.0); White Blood Count 10.8 X10*3/uL (4.8-10.8)
[2024-09-08] MEDS: Acetaminophen 325 MG TABLET 650 MG PO ×3 (06:28→22:31)
[2024-09-08 08:11] VITALS: BP 133/92; PULSE 91; RESP 12; TEMP 37.3; O2SAT 96
[2024-09-08] MEDS: 0.9 % Sodium Chloride Flush 3 ML SYRINGE IVFLUSH ×2 (08:23→15:23)
[2024-09-08] MEDS: Aspirin 81 MG TAB.CHEW PO (08:24)
[2024-09-08 10:34] VITALS: PULSE 91; O2SAT 96
--- NOTE | 2024-09-08 10:58 | HO.VASCPN ---
Subjective Subjective Date of Service: 09/08/24 Interval history: Harry is doing well this morning. He states the pain has decreased and he feels that his leg is better. He states his leg feels warmer and he can feel his toes. He has been eating, drinking, and sleeping ok. He has no new concerns this morning. Physical Exam Vital Signs: Vital Signs: Last Vital Signs Temp 99.1 F 09/08/24 08:11 Pulse 91 09/08/24 10:34 Resp 12 09/08/24 08:11 BP 133/92 H 09/08/24 08:11 Pulse Ox 96 09/08/24 10:34 O2 Del Method Nasal Cannula 09/08/24 08:11 O2 Flow Rate 2 09/08/24 08:11 BMI result Body Mass Index 21.6 Const: General: comfortable and no acute distress Orientation/consciousness: patient oriented x3 HEENT: Ears: hearing grossly normal bilaterally Resp: Effort & Inspection: normal respiratory effort and able to speak in complete sentences Auscultation: clear to auscultation bilaterally Cardio: Rate: regular rate Rhythm: regular rhythm Heart sounds: S1 normal heart sound present and S2 normal heart sound present Bruits: no abdominal aortic bruits, no carotid bruits, no femoral bruits and no renal bruits GI: Palpation (GI): No Abdominal aortic bruit present : Other: Left groin: dressing in place, no bleeding or drainage noted. Neuro: General: patient oriented x3 Cranial nerves: Yes CN's II-XII intact bilaterally Extrem: Other: Left lower extremity: dressing in place, no bleeding or drainage noted. Progress Note: A&P Assessment and plan (1) Status post femoral-popliteal bypass surgery: Status: Acute Assessment and Plan: Harry is post op day 2 s/p left fem to above knee pop bypass. He has remained on bedrest. We will get him OOB today. We have ordered PT/OT evaluations. He will likely be discharged home tomorrow with VNA services; he states he would rather go home than rehab and he states that his son helps him out at home. We discussed the importance that while at home he is not to be sedentary but he cannot be doing too much as well. We discussed the importance of a healthy, well balanced diet including protein and vegetables. His Sodium was decreased this morning but he has trended down previously as well; we will continue to monitor this. If there are any questions or concerns, please do not hesitate to reach out to us. Time Spent With Patient Time: Total time managing care of this patient today ____ minutes. Procedures Date of Service Date of Service: 09/08/24 Quality Stroke Does the patient have a stroke diagnosis?: No VTE Prior VTE?: No VTE Risk Level:: Medical - moderate - high VTE Device Contraindication: Treatment Not Indicated VTE Drug Contraindication: N/A - Med Ordered
--- NOTE | 2024-09-08 13:04 | MHC.CM.PN ---
EMR REVIEWED, NOT YET MEDICALLY CLEARED BY VASCULAR SURGERY. P.T. HAS SEEN PT AND RECOMMENDS HOME WITH FAMILY SUPPORT AND FW WALKER ON DC. CM WILL CONTINUE TO FOLLOW.
[2024-09-08 16:21] VITALS: BP 145/70; PULSE 87; RESP 18; TEMP 37.2; O2SAT 94
[2024-09-08 19:15] VITALS: BP 134/68; PULSE 86; RESP 16; TEMP 36.7; O2SAT 93
--- NOTE | 2024-09-08 19:38 | HO.PM.IMCN ---
History of Present Illness Data of Consult Service Date: 09/08/24 Primary Care Provider: Drew Clay MD HPI Reason for consult: Medical management Pt is a 64-year-old male with a PMH significant for COPD not on home O2 and PVD who was admitted to the hospital under vascular surgery services for elective left fem to above the knee pop bypass. POD2. Hospitalist consult for medical management. Pt reports that overall the pain and numbness in his left leg continues to improve. Did not sleep well last night as cannot tolerate bed due to chronic back pain; states he plans on being discharged home tomorrow. Has been seen and evaluated by PT and been OOB. Denies any N/V/D. Chronic SOB and non-productive cough at baseline. Review of Systems Review of Systems: Negative except for that which is stated in the HPI. [facility] Medical History Smoker Neuropathy COPD (chronic obstructive pulmonary disease) Family History Father Lung cancer Mother Alzheimer dementia Surgical History History of laparotomy Hx of colonoscopy History of colon resection (2012) Social History Household Members: Children Household Members Other:: adult son Housing: House Are you a primary hearing care professional to a significant other at home: No Do you presently have visiting nurse or other home services: No Alcohol intake: never Patient Tobacco Use Status: Current everyday Tobacco user Tobacco use type: Cigarette Cigarettes Per Day: 10 Years Smoked: Started age 21,1PPD e-Cigarette/Vaping Use: Never Used Second Hand Smoke Exposure: No service: No Meds Allergies Allergy/AdvReac Type Severity Reaction Status Date / Time oxycodone [From PERCOCET] AdvReac Severe NAUSEA & Verified 07/27/24 13:18 VOMITING Active Medications: Current Medications Acetaminophen (Acetaminophen 325 Mg Tablet) 650 mg PO Q6H PRN PRN Reason: Pain, Mild 1-3,fever,headache Last Admin: 09/08/24 14:06 Dose: 650 mg Albuterol Sulfate (Albuterol Sulfate (0.083%) 2.5 Mg/3 Ml Vial.Neb) 2.5 mg INHALE ONCE PRN PRN Reason: Shortness of Breath/Wheezing Last Admin: 09/06/24 07:11 Dose: 2.5 mg Aspirin (Aspirin 81 Mg Tab.Chew) 81 mg PO DAILY [facility] Last Admin: 09/08/24 08:24 Dose: 81 mg Calcium Carbonate (Calcium Carbonate 750 Mg Tab.Chew) 750 mg PO Q4H PRN PRN Reason: Heartburn Heparin Sodium (Porcine) (Heparin Sodium,Porcine 5,000 Unit/Ml Vial) 5,000 unit SUBCUT Q8H [facility] Last Admin: 09/08/24 14:57 Dose: 5,000 unit Magnesium Hydroxide (Milk Of Magnesia 30 Ml Oral.Susp) 30 ml PO DAILY PRN PRN Reason: Constipation Melatonin (Melatonin 3 Mg Tablet) 6 mg PO BEDTIME PRN PRN Reason: Insomnia Morphine Sulfate (Morphine Sulfate 2 Mg/Ml Cartridge) 2 mg IVPUSH Q4H PRN; Protocol PRN Reason: Pain, Severe (Pain Scale 7-10) Last Admin: 09/08/24 01:31 Dose: 2 mg Naloxone HCl (Naloxone Hcl 0.4 Mg/Ml Vial) 0.04 mg IVPUSH Q5M PRN PRN Reason: Excessive sedation or RR < 8 Oxycodone HCl (Oxycodone Hcl Immed Release 5 Mg Tablet) 5 mg PO Q4H PRN PRN Reason: Pain, Moderate(Pain Scale 4-6) Sodium Chloride (0.9 % Sodium Chloride Flush 3 Ml Syringe) 3 ml IVFLUSH QSHIFT [facility] Last Admin: 09/08/24 15:23 Dose: 3 ml Tramadol HCl (Tramadol Hcl 50 Mg Tablet) 25 mg PO ONCE PRN PRN Reason: Pain, Moderate(Pain Scale 4-6) Last Admin: 09/07/24 15:07 Dose: 25 mg Home Medications ?Medication ?Instructions ?Recorded ?Confirmed ?Last Taken ?Type acetaminophen 325 mg capsule 650 mg PO Q6H PRN Pain 06/23/24 08/23/24 Unknown History Physical Exam Vital Signs and Narrative: Vital Signs: Last Vital Signs Temp 98.1 F 09/08/24 19:15 Pulse 86 09/08/24 19:15 Resp 16 09/08/24 19:15 BP 134/68 09/08/24 19:15 Pulse Ox 93 09/08/24 19:15 O2 Del Method Nasal Cannula 09/08/24 19:15 O2 Flow Rate 1 09/08/24 19:15 BMI result Body Mass Index 21.6 General: AOx3, no acute distress Resp: Coarse expiratory breath sounds CVS: S1, S2, RRR GI: +BS, NT, no distention Skin: Warm, dry Neuro: Cranial nerves II-XII grossly intact bilaterally. Motor grossly intact bilaterally Extremities: No edema. Left lower extremity with clean dressing in place. Psych: Appropriate affect Results Labs 09/08/24 05:53 09/08/24 05:53 Labs: Laboratory Results - last 24 hr 09/08/24 05:53 MCV 93.1 MCH 31.7 MCHC 34.1 RDW 15.1 Plt Count 234 MPV 9.6 Immature Gran % (Auto) 0.5 H Neut % (Auto) 76.1 H Lymph % (Auto) 9.9 L [place] % (Auto) 12.5 H Eos % (Auto) 0.4 Baso % (Auto) 0.6 Lymph # (Auto) 1.1 L [place] # (Auto) 1.4 H Eos # (Auto) 0.0 Baso # (Auto) 0.1 Abs Immat Gran (auto) 0.05 H Absolute Neuts (auto) 8.3 Absolute Nucleated RBC 0.000 Nucleated RBC % (auto) 0.0 Anion Gap 9 L Estim Creat Clear Calc 127.2 Estimated GFR > 60 Random Glucose 105 Calcium 8.6 D Phosphorus 3.0 Magnesium 1.8 Albumin 3.7 Assessment and Plan (1) Status post femoral-popliteal bypass surgery: Status: Acute Plan Pt is a 64-year-old male with a PMH significant for COPD not on home O2 and PVD who was admitted to the hospital under vascular surgery services for elective left fem to above the knee pop bypass. POD2. Hospitalist consult for medical management. Fem-pop bypass POD2 Plan as per vascular surgery Hyponatremia, mild Pt with chronic low/low-normal sodium Currently 130, in line with previous No indication for additional treatment or workup at this time COPD Pt with coarse breath sounds SOB chronic at reports at baseline Pt offered Duonebs but declined Reports has pulmonology appointment soon for evaluation of home meds Continue home inhaler Continue incentive spirometry Pt otherwise has no acute medical complaints and no chronic medical conditions. Will sign off for now. Thank you for allowing us to participate in the care of this pt.
[2024-09-08] MEDS: Melatonin 3 MG TABLET 6 MG PO (22:28)
[2024-09-09] MEDS: 0.9 % Sodium Chloride Flush 3 ML SYRINGE IVFLUSH (01:13)
[2024-09-09 04:00] VITALS: BP 115/70; PULSE 79; RESP 16; TEMP 36.4; O2SAT 94
[2024-09-09] MEDS: Heparin Sodium,Porcine 5,000 UNIT/ML VIAL 5000 UNIT SUBCUT ×2 (06:27→14:33)
[2024-09-09] MEDS: Acetaminophen 325 MG TABLET 650 MG PO (06:29)
[2024-09-09 07:25] VITALS: BP 119/77; PULSE 86; RESP 16; TEMP 36.9; O2SAT 94
[2024-09-09] MEDS: Aspirin 81 MG TAB.CHEW PO (08:53)
--- NOTE | 2024-09-09 09:22 | MHC.CM.PN ---
DP: PT HAS BEEN MEDICALLY CLEARED FOR DC HOME, NO SERVICES. PT'S SON WILL TRANSPORT.
--- NOTE | 2024-09-09 10:00 | PM.DS ---
DS: Providers Provider Date of Service: 09/09/24 Date of admission: 09/06/24 07:19 Date of discharge: 09/09/24 Primary care physician: Drew Clay MD Consults: 09/07/24 08:13 Consult to Hospitalist Routine Comment: Consulting Provider[place] [facility] [place] [facility] Reason For Exam: medical co-management DS: Diagnosis Discharge Diagnosis (1) Status post femoral-popliteal bypass surgery: Status: Acute DS: Summary Hospital Course Hospital Course: Harry is post op day 3 s/p left fem to above knee bypass, performed on 09/06. He has been doing very well. His pain has been well controlled. He had 48h of bedrest but has been OOB and ambulatory since yesterday. He worked with PT and OT. There was some O2 desaturation with ambulation yesterday; however, the pt is a lifelong smoker and did not have any SCOTT, shortness of breath, CP, etc. Today he is off of O2 and maintaining good saturation. The pt states his leg and foot feels much better. He does not want to go to rehab. He also does not feel like he needs to have VNA services at home. He states his son will be with him and he has other family and friends that are close by. He did request a rolling walker, for which we provided a prescription for him. We will also be having him take a baby ASA a day and will send him home with a couple days of Percocet for moderate to severe pain. We discussed the importance of rest but to not be sedentary. We discussed the importance of a healthy, well balanced diet with protein and vegetables as well as increased water intake. We discussed the importance of smoking cessation, but at least cutting back. The pt will be coming back for his follow up on 09/21/24. If there are any questions or concerns, please do not hesitate to reach out to us. Time Attestation Discharge Coordination Time (in mins): >45 min Quality: Safe Use of Opioids Does Pt have an Active Cancer Diagnosis on the Problem List?: No Quality: Stroke Does the patient have a stroke diagnosis?: No Physical Exam Vital Signs: Vital Signs: Last Vital Signs Temp 98.4 F 09/09/24 07:25 Pulse 86 09/09/24 07:25 Resp 16 09/09/24 07:25 BP 119/77 09/09/24 07:25 Pulse Ox 94 09/09/24 07:25 O2 Del Method Nasal Cannula 09/09/24 07:25 O2 Flow Rate 1 09/09/24 07:25 BMI result Body Mass Index 21.6 Const: General: comfortable and no acute distress Orientation/consciousness: patient oriented x3 HEENT: Ears: hearing grossly normal bilaterally Resp: Effort & Inspection: normal respiratory effort and able to speak in complete sentences Auscultation: clear to auscultation bilaterally Cardio: Rate: regular rate Rhythm: regular rhythm Heart sounds: S1 normal heart sound present and S2 normal heart sound present Bruits: no abdominal aortic bruits, no carotid bruits, no femoral bruits and no renal bruits GI: Other: Left groin incision: C/D/I. [place] in place. No bleeding or drainage noted. Palpation (GI): No Abdominal aortic bruit present Neuro: General: patient oriented x3 Cranial nerves: Yes CN's II-XII intact bilaterally Extrem: Other: Left medial thigh: incision C/D/I. [place] intact. No bleeding or drainage noted. DS: Data Data Completed and Pending Completed studies during hospitalization [Text1]: Pending at discharge 09/06/24 10:53 Surgical [PTH] Routine Discharge Plan Discharge Anticipated Discharge Date/Time: 09/09/24 15:54 Patient Disposition: Home, Self-Care Discharge Diagnosis: s/p left fem to above knee bypass Referrals: Drew Clay MD [Primary Care Provider] - 1 Week Discharge Medications: New aspirin 81 mg capsule 81 mg PO DAILY Qty: 90 2RF oxycodone-acetaminophen 5-325 mg tablet 1 tab PO TID PRN (Reason: pain) Qty: 20 0RF Rx Instructions: Partial Fill upon patient request. Continued acetaminophen 325 mg Capsule 650 mg PO Q6H PRN (Reason: Pain) Anoro Ellipta 62.5-25 mcg/actuation blister with device 1 inh inhalation DAILY Qty: 1 6RF Discharge Orders: Discharge Order (Routine); Ordered 09/09/24 Ordered By: Diya Jarquin Diet: Advance to usual diet Activity on Discharge: As tolerated Stand Alone Forms: Patient Portal Discharge page Print Language: [place] Citizen Activity Restrictions/Additional Instructions: You may shower but do not immerse in a bath/hottub. You may climb a flight of stairs as tolerated. Do not lift anything heavier than a gallon of milk for 10-[address] Ames in follow-up in approximately 2 weeks time. You should already have an appointment if not please call my office at [phone] If you notice excessive bleeding or discharge from the incision sites, please immediately call my office or return to the emergency room. Care Plan Goals: Do not stay sedentary but do not do intense physical activity. Do not lift over a gallon of milk for the next 2 weeks. Increase you protein and water intake. Smoking cessation. Health Concerns: Smoking, s/p fem-pop bypass, verna in place. Plan of Treatment: Keep the incision sites clean and dry. Do not lift more than a gallon of milk until your follow appt. Relax and rest but do not stay sedentary. Take all your medications as prescribed, including starting to take an Aspirin a day. We sent a couple day's worth of Percocet to help with moderate-severe pain. Use Tylenol or Ibuprofen for mild pain. Assessment: s/p fem-pop bypass
[2024-09-09 16:55] VITALS: BP 144/70; PULSE 90; RESP 18; TEMP 37.1; O2SAT 93
== END 2024-09-09 17:01 | disposition home or self-care (01) | DRG 181 ==
LOC: HO.SSSA 07:19 → HO.ICU 11:37 → HO.S3 09-07 09:51
PROVIDERS: Internal Medicine Pulmonary Disease; Nurse Practitioner; Admitting Provider Surgery Vascular Surgery; PCP Internal Medicine; Visit Provider Surgery Vascular Surgery
PROC: 041L0JL Bypass Left Femoral Artery to Popliteal Artery with Synthetic Substitute, Open Approach (ICD-10-PCS; principal; 2024-09-06 07:30)
DX: I70.212 Atherosclerosis of native arteries of extremities with intermittent claudication, left leg (principal); E87.1 Hypo-osmolality and hyponatremia; J44.9 Chronic obstructive pulmonary disease, unspecified; F17.210 Nicotine dependence, cigarettes, uncomplicated; Z71.6 Tobacco abuse counseling; Z79.899 Other long term (current) drug therapy
CPT/HCPCS: 36415; 80048; 82040; 83735; 84100; 85025; 85027; 85610; 85730; 86850; 86900; 86901; 88304; 88311; 94640; 97162; 97165; A4649; C1768; C1889; C9250; J0131; J0690; J1100; J1171; J1644; J2003; J2250; J2270; J2305; J2405; J2598; J2704; J2795; J3010

== ENCOUNTER → 2024-09-06 07:19 | Outpatient (BNV) | payer OTHER, SELFPAY | PROVIDERS: Admitting Provider Surgery Vascular Surgery; PCP Internal Medicine; Visit Provider Internal Medicine Pulmonary Disease | DX: I73.9 Peripheral vascular disease, unspecified (principal); Z95.828 Presence of other vascular implants and grafts; J44.9 Chronic obstructive pulmonary disease, unspecified | CPT/HCPCS: 99222; 99232 ==

== ENCOUNTER → 2024-09-06 07:19 | Outpatient (BNV) | payer OTHER, SELFPAY | PROVIDERS: Admitting Provider Surgery Vascular Surgery; PCP Internal Medicine; Visit Provider Student in an Organized Health Care Education/Training Program | DX: Z95.828 Presence of other vascular implants and grafts (principal) | CPT/HCPCS: 99222 ==

== ENCOUNTER → 2024-09-06 07:19 | Outpatient (BNV) | payer OTHER, SELFPAY | PROVIDERS: Admitting Provider Surgery Vascular Surgery; PCP Internal Medicine; Visit Provider Surgery Vascular Surgery | DX: I70.212 Atherosclerosis of native arteries of extremities with intermittent claudication, left leg (principal) | CPT/HCPCS: 35656; 99024; 99232 ==

== ENCOUNTER 2024-09-21 08:24 | Outpatient (REF) | payer SELFPAY ==
--- NOTE | ~2024-09-21 | CT_ITS ---
CLINICAL HISTORY: F17.200 - Nicotine dependence, unspecified, uncomplicated CT lung cancer screening (LDCT) Comparison: None Technique: Axial CT images of the chest using low-dose technique. Referring provider counseled the patient on shared decision-making for LDCT screening. Additional counseling was provided on smoking cessation. Effective radiation dose total: DLP 35.3 mGycm, CTDIvol 1 mGy. Findings: Likely benign sclerotic lesion T2 spinous process. There is moderate centrilobular emphysema more severe in the upper lobes. 3 mm nodule right middle lobe image number 114 of series 6. Spiculated 7 mm nodule in the left upper lobe on image number 42 of series 6. No other nodules noted. Coronary artery calcifications: Moderate to severe Limited upper abdomen: Unremarkable Other: None Impression: LungRADS 4A - Suspicious: Follow-up low dose Chest CT recommended in 3 months. Currently likely too small for PET imaging. ##L4A# Category 1: Normal; continue annual screening Category 2: Benign appearance or behavior, continue annual screening Category 3: Probably benign, [address] recommended Category 4A: Suspicious, [address] recommended; may consider PET/CT Category 4B: Suspicious, Additional diagnostics and/or tissue sampling recommended Category 4X: Suspicious, Additional diagnostics and/or tissue sampling recommended Category 0: Recalls (incomplete screen due to Incomplete coverage, Noise, Respiratory motion, Expiration, Obscured by acute abnormality) This document has been electronically signed by: Brandon Mariscal MD on 09/21/2024 12:05:59
== END 2024-09-21 08:25 | disposition home or self-care (01) ==
LOC: HO.CT 08:24
PROVIDERS: Visit Provider Internal Medicine Pulmonary Disease
DX: Z12.2 Encounter for screening for malignant neoplasm of respiratory organs (principal); F17.210 Nicotine dependence, cigarettes, uncomplicated; I73.9 Peripheral vascular disease, unspecified
CPT/HCPCS: 71271; 99212

== ENCOUNTER → 2024-09-21 08:25 | Outpatient (BNV) | payer SELFPAY | PROVIDERS: Visit Provider Radiology Diagnostic Radiology | DX: F17.210 Nicotine dependence, cigarettes, uncomplicated (principal) | CPT/HCPCS: 71271 ==

== ENCOUNTER 2024-09-21 10:46 | Outpatient (AMB) | payer OTHER, SELFPAY ==
--- NOTE | 2024-09-21 10:49 | A.OFFVIS_ITS ---
Intake Visit Reasons: 2 week follow up s/p L femoral Bypass 09/06/24 Intake Note: Patient presents for 2 week follow up L femoral bypass. Patient states he has soreness but no pain where surgery was performed. Accompanied by: Self / Same As Patient Allergies oxycodone [From PERCOCET] Adverse Reaction (Severe, Verified 09/21/24 10:51) NAUSEA & VOMITING HPI HPI 2 week follow up s/p L femoral Bypass 09/06/24: Details: The patient is a 64-year-old male presenting with status post left [id number] popliteal bypass surgery conducted on 09/06/2024. He describes post-surgery swelling of the left leg. The leg swelling commenced when the patient began more active movement after discharge, suggesting potential activity-induced exacerbation. Symptoms included soreness and some residual pain mostly resolved, although the patient notes specific calluses causing discomfort The patient has been regularly ambulating within his residence under self-monit ored, incrementally increasing periods of movement. The surgical incisions appear to be healing adequately. He now presents for postop follow-up [facility] Medical History Smoker Neuropathy COPD (chronic obstructive pulmonary disease) Surgical History History of laparotomy Hx of colonoscopy History of colon resection (2012) Family History Father Lung cancer Mother Alzheimer dementia Social History Household Members: Children Household Members Other:: adult son Housing: House Are you a primary day care director to a significant other at home: No Do you presently have visiting nurse or other home services: No 75 years or older and lives alone: No Alcohol intake: never Patient Tobacco Use Status: Current everyday Tobacco user Tobacco use type: Cigarette Cigarettes Per Day: 10 Years Smoked: Started age 21,1PPD e-Cigarette/Vaping Use: Never Used Second Hand Smoke Exposure: No service: No Review of Systems Const All systems reviewed & are unremarkable except as noted in HPI and below Reports no additional complaints ENT Reports Normal hearing present Card Denies chest pain, Denies chest pain at rest, Denies chest pain with activity and Denies pedal edema Resp Denies cough GI Denies abdominal pain Musc Denies abnormal gait, Denies muscle cramps and Denies radiating pain into limb Skin/Breast Denies skin ulcer and Denies wounds Neuro Reports Normal hearing present and Denies abnormal gait Psych Reports no additional complaints Physical Exam Const General: cooperative, healthy appearing and comfortable Orientation/consciousness: oriented to person, oriented to place and oriented to time HEENT Head: Yes normal to inspection Neck Neck: Yes normal visual inspection Carotids: no bruits Chest Chest palpation & inspection: normal inspection of the chest Resp Effort & Inspection: normal respiratory effort and able to speak in complete sentences Auscultation: clear to auscultation bilaterally, no crackles, no rales, no rhonchi and no wheezes Cardio Other: Left DP signals Rate: regular rate Rhythm: regular rhythm Heart sounds: S1 normal heart sound present and S2 normal heart sound present Bruits: no carotid bruits GI Inspection: Yes normal to inspection Skin Other: Left leg incisions healing well Wounds: no wounds Hair: normal Neuro General: oriented to person, oriented to place and oriented to time Cranial nerves: Yes CN's II-XII intact bilaterally and Yes Normal hearing present Cognition (Neuro): normal cognition Motor exam (neuro): 5/5 motor strength present throughout Extrem Other: venous exam: No significant superficial varicosities or spider telangiectasias, minimal edema General: No clubbing, No cyanosis and No edema Psych Appearance: grossly normal Mental Status: mental status grossly normal Speech and movement: Normal speech and movement present Assessment & Plan Assessment & Plan (1) PAD (peripheral artery disease): Comment: 06/02/2024 - diagnostic angiogram 09/06/2024 - left femoral to above knee popliteal bypass Code(s): I73.9 - Peripheral vascular disease, unspecified Category: Medical Plan: I discussed with the patient the normalcy of post-surgical edema and the reasons behind increased swelling due to improved perfusion following the bypass procedure. We reviewed the importance of cautious ambulation and the expected improvement trajectory, emphasizing the conservative increase of activity l evels. The patient was informed of the status of wound healing with confidence in staple removal without the risk of wound dehiscence. I explained the need for a follow-up ultrasound in three months to monitor the efficacy of the bypass and the potential of late-developing complications. Instructions on when to return for further evaluation were provided, and all questions from the patient were ad dressed to assure understanding and alleviate concerns. Plan Patient was informed and verbally consented to the use of an ambient scribe for clinic note documentation during this visit. Orders: Orders US arterial duplex LE BI 3 Months I73.9 - Peripheral vascular disease, unspecified Patient Instructions: - Continue walking short distances within the home - Monitor incision sites for signs of infection - Call our office if significant concerns arise - Return in three months for follow-up - Seek medical attention if new or worsening symptoms occur Coding Level of Care Code Global (70358) Diagnoses PAD (peripheral artery disease) I73.9
== END 2024-09-21 11:17 | disposition home or self-care (01) ==
LOC: HO.HVS 10:47
PROVIDERS: PCP Internal Medicine; Visit Provider Surgery Vascular Surgery
DX: I73.9 Peripheral vascular disease, unspecified (principal)
CPT/HCPCS: 99024

== ENCOUNTER 2024-12-16 08:24 | Outpatient (REF) | payer OTHER, SELFPAY ==
--- NOTE | ~2024-12-16 | US_ITS ---
EXAMINATION: US RETROPERITONEAL LIMITED (AORTA) CLINICAL INFORMATION: Peripheral vascular disease.. COMPARISON: Correlated to CT angiogram aorta dated March 25, 2024. TECHNIQUE: Ray-scale, color Doppler and spectral Doppler evaluation of the abdominal aorta. FINDINGS: The aorta is patent. Peak systolic velocity and diameter measurements of the aorta are as follows: Proximal: 131 cm/s and 1.7 cm. Mid: 64 cm/s and 1.1 cm. Distal: 39 cm/s and 1.5 cm. The peak systolic velocities of the common iliac arteries are as follows: Right: Common iliac artery is not identified. External iliac artery: 84 cm/s. Left: Common iliac artery is not identified. External iliac artery: 311 cm/s.. US/US abdominal aortic aneurysm IMPRESSION: No aneurysm, abdominal aorta. Concerning high degree stenosis, left external iliac artery.. Electronically signed by: Miles Aguiar MD 12/16/2024 11:16 AM EDT
--- NOTE | ~2024-12-16 | US_ITS ---
EXAMINATION: Noninvasive assessment of the bilateral lower extremities with ARTERIAL DUPLEX, ANKLE BRACHIAL INDICES (ABIs), and PULSE VOLUME RECORDINGS (PVRs). CLINICAL INFORMATION: Left femoropopliteal bypass. TECHNIQUE: Duplex Doppler techniques with waveform analysis and measurement of velocities in the bilateral common femoral, profunda femoris, superficial femoral, popliteal and tibial arteries were performed. Additionally, ankle pulse volume recordings, ankle pressure measurements and ankle brachial indices were obtained of the lower extremity arterial system bilaterally. The study was performed only at rest. COMPARISON: None FINDINGS: DIRECT DUPLEX DOPPLER FINDINGS: RIGHT LEG: Common femoral artery: 80 cm/s, phasicity: Monophasic Profunda femoris artery: 44 cm/s, phasicity: Monophasic. Superficial femoral artery (proximal): No color Doppler flow. Superficial femoral artery (mid): No color Doppler flow. Superficial femoral artery (distal): No color Doppler flow. Popliteal artery: 21 cm/s, phasicity: Monophasic. Posterior tibial artery: 8 cm/s, phasicity: Monophasic. Peroneal artery: No color Doppler flow. Anterior tibial artery: 26 cm/s, phasicity: Monophasic. Dorsalis pedis artery: 12 cm/s, phasicity:Monophasic. LEFT LEG: Common femoral artery: 133 cm/s, phasicity: Monophasic. Profunda femoris artery: 205 cm/s, phasicity: Monophasic. Superficial femoral artery (proximal): No color Doppler flow. Superficial femoral artery (mid): No color Doppler flow. Superficial femoral artery (distal): No color Doppler flow. Popliteal artery: 23 cm/s, phasicity: Monophasic Posterior tibial artery: 13 cm/s, phasicity: Monophasic. Peroneal artery: No color Doppler flow. Anterior tibial artery: 16 cm/s, phasicity: Monophasic. Dorsalis pedis artery: 9 cm/s, phasicity: Monophasic. Left femoropopliteal bypass: Inflow artery peak systolic velocity: 133 cm/s. Monophasic waveform. Proximal anastomosis:No color Doppler flow. Mid bypass segment:No color Doppler flow. Distal bypass segment:No color Doppler flow. Distal anastomosis:No color Doppler flow. Outflow artery: 10 cm/s. Monophasic. BRACHIAL PRESSURES: Right: 160 Left: 154 ANKLE PRESSURES: Right: PT not calculated., DP not calculated. Left: PT not calculated., DP not calculated. ANKLE-BRACHIAL INDEX: Right: not calculated. Left: not calculated. ANKLE PVR WAVEFORMS: Right: Abnormal Left: Abnormal US/US arterial duplex LE BI IMPRESSION: Right leg: Occluded superficial femoral artery. Severe inflow disease throughout the interrogated vessels. Left leg: Occluded superficial femoral artery. Severe inflow disease throughout the interrogated vessels. Occluded left femoropopliteal bypass. laboratory technologist called Dr. Paez' office and results given to Rosalba Keen at the time of the examination. ERIKA Reference: - >1.4 = calcified vessels - 0.9 - 1.4 = normal - no significant arterial disease - 0.7 - 0.89 = mild peripheral arterial disease - 0.51 - 0.69 = moderate peripheral arterial disease - 0.50 = severe peripheral arterial disease - < .30 = critical arterial disease Electronically signed by: Miles Aguiar MD 12/16/2024 10:25 AM EDT
== END 2024-12-16 08:25 | disposition home or self-care (01) ==
LOC: HO.US 08:24
PROVIDERS: Visit Provider Surgery Vascular Surgery
DX: I73.9 Peripheral vascular disease, unspecified (principal)
CPT/HCPCS: 76706; 93925

== ENCOUNTER → 2024-12-16 08:25 | Outpatient (BNV) | payer OTHER, SELFPAY | PROVIDERS: Visit Provider Radiology Diagnostic Radiology | DX: I70.203 Unspecified atherosclerosis of native arteries of extremities, bilateral legs (principal); I73.9 Peripheral vascular disease, unspecified | CPT/HCPCS: 76706; 93925 ==

== ENCOUNTER 2025-01-11 07:19 | Outpatient (REF) | payer OTHER, SELFPAY ==
--- NOTE | ~2025-01-11 | CT_ITS ---
CLINICAL HISTORY: F17.200 - Nicotine dependence, unspecified, uncomplicated Examination CT lung cancer screening History Screening examination performed for pulmonary nodules Technique Axial CT images of the chest using low-dose technique. Effective radiation dose total: 52.9 mGy-cm, CTDIvol 1.2 mGy. Referring provider counseled the patient on shared decision-making for LDCT screening. Additional counseling was provided on smoking cessation. Comparison: CT/SR - CT LUNG SCREENING - 09/21/24 08:30 EDT Findings: Lungs: Left upper lobe nodule measuring 7 mm, stable (series 7, image 39 on the current study and series 5 image 42 on the prior study). Adjacent to the 7 mm nodule there is smaller solid nodule measuring 5 mm, previously 3 mm. Substantial paraseptal emphysema. Confluent centrilobular emphysema. Mild bronchial wall thickening. Subsegmental atelectasis versus linear scarring Coronary artery calcifications: Moderate Other: Calcification of the aortic valve and mitral annulus. Limited upper abdomen: Unremarkable Impression: LungRADS 3 - Probably benign: Recommend low dose screening Chest CT in 6 months. ##L3# This document has been electronically signed by: Ektaerina Lee MD on 01/11/2025 21:55:10
== END 2025-01-11 07:20 | disposition home or self-care (01) ==
LOC: HO.CT 07:19
PROVIDERS: Visit Provider Internal Medicine Pulmonary Disease
DX: Z12.2 Encounter for screening for malignant neoplasm of respiratory organs (principal); F17.200 Nicotine dependence, unspecified, uncomplicated
CPT/HCPCS: 71250

== ENCOUNTER → 2025-01-11 07:22 | Outpatient (BNV) | payer OTHER, SELFPAY | PROVIDERS: Visit Provider Radiology Diagnostic Radiology | DX: R91.8 Other nonspecific abnormal finding of lung field (principal); I25.84 Coronary atherosclerosis due to calcified coronary lesion; I34.81 Nonrheumatic mitral (valve) annulus calcification | CPT/HCPCS: 71250 ==

== ENCOUNTER 2025-02-15 13:16 | Outpatient (AMB) | payer OTHER, SELFPAY ==
--- NOTE | 2025-02-15 13:18 | A.OFFVIS_ITS ---
Vital Signs 02/15/25 13:20 Height 5 ft 11 in Weight 147 lb BMI 20.5 Intake Visit Reasons: 3 mo follow up Arterial US 12/16/24 Intake Note: 3 mo follow up Arterial US 12/16/24 s/p Left fem bypass 09/06/24. Pt states that his left LE feels a bit better, has numbness on Left LE below the knee, more often when he is on his feet. 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 The bypass was performed in August 2024, and the patient had an ultrasound on December 16, which indicated that the bypass is not functioning. Despite this, the patient reports significant improvement in leg pain, although he experiences some numbness. The patient reports limited physical activity, walking about half a block and occasionally around the grocery store once a week. He also walks up and down his driveway but acknowledges he could increase his activity level. The patient smokes half a pack of cigarettes per day, which is a concern given his vascular condition. He actually had a pack of cigarettes in his pocket at his office visit. He now presents for routine vascular follow-up [facility] Medical History Smoker Neuropathy COPD (chronic obstructive pulmonary disease) Surgical History History of laparotomy Hx of colonoscopy History of colon resection (2012) Family History Father Lung cancer Mother Alzheimer dementia Social History Household Members: Children Household Members Other:: adult son Housing: House Are you a primary child care sitter to a significant other at home: No Do you presently have visiting nurse or other home services: No 75 years or older and lives alone: No Alcohol intake: never Patient Tobacco Use Status: Current everyday Tobacco user Tobacco use type: Cigarette Cigarettes Per Day: 10 Years Smoked: Started age 21,1PPD e-Cigarette/Vaping Use: Never Used Second Hand Smoke Exposure: No service: No Review of Systems Const All systems reviewed & are unremarkable except as noted in HPI and below Reports no additional complaints ENT Reports Normal hearing present Card Denies chest pain, Denies chest pain at rest, Denies chest pain with activity and Denies pedal edema Resp Denies cough GI Denies abdominal pain Musc Denies abnormal gait, Denies muscle cramps and Denies radiating pain into limb Skin/Breast Denies skin ulcer and Denies wounds Neuro Reports Normal hearing present and Denies abnormal gait Psych Reports no additional complaints Physical Exam Vital Signs: BMI result Body Mass Index 20.5 Const General: cooperative, healthy appearing and comfortable Orientation/consciousness: oriented to person, oriented to place and oriented to time HEENT Head: Yes normal to inspection Neck Neck: Yes normal visual inspection Carotids: no bruits Chest Chest palpation & inspection: normal inspection of the chest Resp Effort & Inspection: normal respiratory effort and able to speak in complete sentences Auscultation: clear to auscultation bilaterally, no crackles, no rales, no rh onchi and no wheezes Cardio Other: Bilateral DP signals Rate: regular rate Rhythm: regular rhythm Heart sounds: S1 normal heart sound present and S2 normal heart sound present Bruits: no carotid bruits Peripheral pulses: Peripheral pulses 2+ throughout GI Inspection: Yes normal to inspection Skin Wounds: no wounds Hair: normal Neuro General: oriented to person, oriented to place and oriented to time Cranial nerves: Yes CN's II-XII intact bilaterally and Yes Normal hearing present Cognition (Neuro): normal cognition Motor exam (neuro): 5/5 motor strength present throughout Extrem Other: venous exam: No significant superficial varicosities or spider telangiectasias, minimal edema General: No clubbing, No cyanosis and No edema Psych Appearance: grossly normal Mental Status: mental status grossly normal Speech and movement: Normal speech and movement present Results Reviewed Results Reviewed: Arterial ultrasound dated 12/16/2024 was reviewed written report and images. Left fem-pop occluded Assessment & Plan Assessment & Plan (1) PAD (peripheral artery disease): Comment: 06/02/2024 - diagnostic angiogram 09/06/2024 - left femoral to above knee popliteal bypass Code(s): I73.9 - Peripheral vascular disease, unspecified Category: Medical Plan: During the visit, we discussed the current status of the patient's bypass, which is not functioning, and the improvement in leg pain despite this. I advised the patient to increase physical activity as tolerated and scheduled a follow-up ultrasound in six months. We also discussed the importance of smoking cessation for vascular health. Orders: Orders US arterial duplex LE BI 6 Months I73.9 - Peripheral vascular disease, unspecified Coding Level of Care Code Est Pt Level 4 (22857) Complex EM visit Add On G2211 Diagnoses PAD (peripheral artery disease) I73.9
[2025-02-15 13:20] VITALS: BMI 20.5
== END 2025-02-15 13:52 | disposition home or self-care (01) ==
LOC: HO.HVS 13:17
PROVIDERS: Visit Provider Surgery Vascular Surgery
DX: I73.9 Peripheral vascular disease, unspecified (principal)
CPT/HCPCS: 99214; G2211

== ENCOUNTER 2025-02-15 14:23 | Outpatient (AMB) | payer OTHER, SELFPAY ==
[2025-02-15 14:44] VITALS: BP 140/62; PULSE 87; BMI 20.8
--- NOTE | 2025-02-15 14:44 | A.OFFVIS_ITS ---
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 In the past, he was seen regarding preoperative stratification for lower extreme vascular surgery. He had the surgery and it seems it went well. No new concerns. No angina or in fact anything cardiac sounding. He underwent preoperative workup prior to the vascular surgery and that was okay. Chronic smoker and still smokes. Blood pressure is also on the higher side. [facility] Medical History Smoker Neuropathy COPD (chronic obstructive pulmonary disease) Surgical History History of laparotomy Hx of colonoscopy History of colon resection (2012) Family History Father Lung cancer Mother Alzheimer dementia Social History Household Members: Children Household Members Other:: adult son Housing: House Are you a primary adult daycare coordinator to a significant other at home: No Do you presently have visiting nurse or other home services: No 75 years or older and lives alone: No Alcohol intake: never Patient Tobacco Use Status: Current everyday Tobacco user Tobacco use type: Cigarette Cigarettes Per Day: 10 Years Smoked: Started age 21,1PPD e-Cigarette/Vaping Use: Never Used Second Hand Smoke Exposure: No service: No Review of Systems Const Denies chills, Denies fatigue, Denies fever(s), Denies frequent falls, Denies weakness, Denies weight gain and Denies weight loss ENT Denies dizziness Card Denies chest pain, Denies leg edema, Denies lightheadedness, Denies palpitations, Denies dyspnea and Denies dyspnea on exertion Resp Denies cough, Denies dyspnea and Denies dyspnea on exertion GI Denies hematochezia Musc Denies abnormal gait, Denies muscle weakness, Denies numbness, Denies radiating pain into limb and Denies tingling Neuro Denies abnormal gait, Denies dizziness, Denies frequent falls, Denies numbness, Denies tingling and Denies weakness Endo Denies fatigue and Denies palpitations Physical Exam Vital Signs: Last Vital Signs Pulse 87 02/15/25 14:44 BP 140/62 H 02/15/25 14:44 BMI result Body Mass Index 20.8 Const General: comfortable and no acute distress Orientation/consciousness: patient oriented x3 HEENT Other: Unremarkable Head: Yes normal to inspection Neck Neck: Yes normal visual inspection Chest Chest palpation & inspection: normal inspection of the chest Resp Auscultation: clear to auscultation bilaterally Cardio Palpation: normal PMI Heart sounds: S1 normal heart sound present, S2 normal heart sound present, no gallops, Murmur heart sound present systolic II/ and at the right sternal border and no rubs GI Palpation (GI): Soft to palpation Back/Spine/Pelvis Other: unremarkable Skin General skin exam: no rashes or lesions noted Neuro General: patient oriented x3 Extrem General: Yes normal to inspection Psych Mental Status: mental status grossly normal Assessment & Plan Assessment & Plan (1) PAD (peripheral artery disease): Comment: 06/02/2024 - diagnostic angiogram 09/06/2024 - left femoral to above knee popliteal bypass Code(s): I73.9 - Peripheral vascular disease, unspecified Category: Medical (2) Atherosclerotic cardiovascular disease: Code(s): I25.10 - Atherosclerotic heart disease of [place] coronary artery without angina pectoris Category: Medical (3) Nonrheumatic aortic (valve) stenosis: Code(s): I35.0 - Nonrheumatic aortic (valve) stenosis Category: Medical Plan Cardiac studies reviewed. Echocardiogram with LVEF of 60-65%. Mild aortic stenosis. Myocardial perfusion imaging study shows normal perfusion. In the chest CT scan performed for lungs, described to have moderate coronary artery calcification. Overall, lower extremity vascular disease, coronary disease but no ischemia. Mainly risk factor modification. Smoking cessation if he can do that. Borderline high blood pressure when we can start medication like Amlodipine 2.5 mg daily. Statins. Follow up labs in a few months' time. Recheck echo in one year. He will need to find a new PCP as his prior doctor has retired. Follow up in one year. Orders: Orders Lipid Panel 3 Months E78.5 - Hyperlipidemia, unspecified, I73.9 - Peripheral vascular disease, unspecified CA echo transthoracic complete 1 Year I35.0 - Nonrheumatic aortic (valve) stenosis Comprehensive Met. Panel 3 Months I73.9 - Peripheral vascular disease, unspecified Medications: New amlodipine 2.5 mg PO DAILY 90 tabs 1RF atorvastatin (Lipitor) 10 mg PO QPM 90 tabs 1RF Coding Level of Care Code Est Pt Level 4 (73631) Complex EM visit Add On G2211 Diagnoses PAD (peripheral artery disease) I73.9 Atherosclerotic cardiovascular disease I25.10 Nonrheumatic aortic (valve) stenosis I35.0
== END 2025-02-15 15:05 | disposition home or self-care (01) ==
LOC: HO.HCS 14:24
PROVIDERS: Visit Provider Internal Medicine
DX: I73.9 Peripheral vascular disease, unspecified (principal); I25.10 Atherosclerotic heart disease of native coronary artery without angina pectoris; I35.0 Nonrheumatic aortic (valve) stenosis
CPT/HCPCS: 99214; G2211

== ENCOUNTER 2025-03-15 16:22 | Outpatient (AMB) | payer OTHER, SELFPAY ==
[2025-03-15 16:26] VITALS: BP 138/80; PULSE 86; TEMP 36.1; O2SAT 95; BMI 21.0
--- NOTE | 2025-03-15 16:26 | A.OFFPC_ITS ---
Vital Signs 03/15/25 16:26 Height 5 ft 11 in Weight 68.209 kg BMI 21.0 BP 138/80 Blood Pressure Location Lt brachial Position Sitting Pulse 86 Pulse Source Pulse Oximeter Temp 97 F Temp Source Temporal Artery Scan Pulse Oximetry (%) 95 Oxygen Delivery Method Room Air Intake Visit Reasons: establish care for CV/CV meds - Croke-see comment Custom Harvester Required: No Accompanied by: Self / Same As Patient Allergies oxycodone (From PERCOCET) Adverse Reaction (Severe, Verified 03/15/25 16:27) NAUSEA & VOMITING Tobacco use date assessed: 03/15/25 Dental Screening Dental Screen Date: 03/15/25 Did you have a dental visit in the last 12 months?: No Did you have a dental problem in the last 6 months where you did not have access to dental care?: No HPI HPI Comments History of Present Illness Details 64-year-old male with history of COPD, P AD, aortic valve stenosis, atherosclerosis, pulmonary nodules, cigarette smoker presenting to the office today for management of chronic conditions and to establish care. Prior patient of Dr. Clay, last seen about 1 year ago COPD/pulmonary nodules-previously following with pulmonology, has not been seen since 07/2024. Was previously on Anoro but prescription ran out. Does report occasional wheezing and shortness of breath. No cough. Continue smoking about 1/2 pack of cigarettes per day, sometimes last. Has cut back from 1 pack per day. Following closely with lung cancer screening department. Last low-dose chest CT 01/2025 showing stable nodules: Left upper lobe nodule measuring 7 mm with adjacent smaller solid nodule measuring 5 mm which has grown from 3 mm previously. Also showing substantial paraseptal emphysema and centrilobular emphysema CAD//HTN-following with Dr. Higginbotham. Last echo 07/2024 showing normal LV systolic function with EF 60-65% with impaired relaxation filling pattern and mild aortic stenosis. On lexicon stress test 06/2024 nondiagnostic EKG for ischemia. No arrhythmias noted or shortness of breath. At last visit 02/15 was started on amlodipine 2.5 mg daily PAD- s/p fem-pop bypass 08/2024. Continues with aching and sensation of numbness in the left lower extremity. Follows with Dr. Ames. Last report noting bibasilar not functioning despite his improvements in pain. He has increased physical activity as advised and will follow-up with vascular surgery in 6 months following arterial duplex. Concerns: Has to calluses on the feet bilaterally which makes ambulation painful. Previously followed with Podiatry and had negative experience. Currently not interested in referral Health maintenance: Last colonoscopy 2012. Declines but is agreeable to Cologuard Due for PSA ROS: see hpi EXAM: Constitutional - Awake and Alert, No apparent distress Eyes - PERRL Cardiovascular - S1S2, RRR, No edema Respiratory - Normal lung expansion, Normal respiratory effort, No respiratory distress, CTA bilaterally Extremities - no calf tenderness bilaterally, no swelling Skin - Warm/Dry Neurological - Alert & oriented x3 Psychological - Appropriate affect [facility] Medical History (Updated 03/15/25 @ 17:10 by STEPHANY Hines) HTN (hypertension) Callus of foot Smoker Neuropathy COPD (chronic obstructive pulmonary disease) Surgical History History of laparotomy Hx of colonoscopy History of colon resection (2012) Family History (Updated 03/15/25 @ 16:35 by Atiya Charles MA) Father Lung cancer Mother Alzheimer dementia Social History Household Members: Children Household Members Other:: adult son Housing: House Are you a primary pediatric acute care unit nurse to a significant other at home: No Do you presently have visiting nurse or other home services: No 75 years or older and lives alone: No Alcohol intake: never Patient Tobacco Use Status: Current everyday Tobacco user Tobacco use type: Cigarette Cigarettes Per Day: 10 Years Smoked: Started age 21,1PPD e-Cigarette/Vaping Use: Never Used Second Hand Smoke Exposure: No service: No Current occupational status: retired Cognitive needs: No Hearing needs: No Vision needs: Yes (rx glasses) Questionnaire PHQ-9 Over the last 2 weeks, how often have you been bothered by any of the following problems? 1. Little interest or pleasure in doing things: not at all 2. Feeling down, depressed, or hopeless: not at all 3. Trouble falling or staying asleep, or sleeping too much: not at all 4. Feeling tired or having little energy: not at all 5. Poor appetite or overeating: not at all 6. Feeling bad about yourself - or that you are a failure or have let yourself or your family down: not at all 7. Trouble concentrating on things, such as reading the newspaper or watching television: not at all 8. Moving or speaking so slowly that other people could have noticed. Or the opposite - being so fidgety or restless that you have been moving around a lot more than usual: not at all 9. Thoughts that you would be better off or of hurting yourself in some way: not at all Total score: 0 Source: Developed by Drs. Camacho Matamoros, Shaneka Corea, Edgar Norman and colleagues, with an educational viral from [employer]. Thrive Questionnaire Date Thrive assessed: 03/15/25 I am a: Patient Within the past 12 months, did the food you bought not last and you didn't have the money to get more?: Never true Within the past 12 months, did you worry whether your food would run out before you got money to buy more?: Never true Do you have trouble paying for medicines?: No Do you have trouble getting transportation to medical appointments?: No Do you have trouble paying your heating and electricity bill?: No Do you have trouble taking care of your child, family member or friend?: No Do you have trouble with day-to-day activities such as bathing, preparing meals, shopping, managing finances, etc.?: No Are you currently unemployed and looking for a job?: No Are you interested in more education?: No THRIVE Score: 0 AUDIT C Alcohol Use Questionnaire (AUDIT-C) 1. How often do you have a drink containing alcohol?: Monthly or less 2. How many drinks containing alcohol do you have on a typical day when you are drinking?: 1 or 2 3. How often do you have six or more drinks on one occasion?: Less than monthly Total Score: 2 JANIS-7 AMB Questionnaire JANIS-7 Date JANIS - 7 assessed: 03/15/25 Feeling nervous, anxious, or on edge: 0 = Not at all Not being able to stop or control worryin = Not at all Worrying too much about different things: 0 = Not at all Trouble relaxin = Not at all Being so restless that it is hard to sit still: 0 = Not at all Becoming easily annoyed or irritable: 0 = Not at all Feeling afraid as if something awful might happen: 0 = Not at all Total JANIS-7 score (0-4 normal; 5-9 mild; 10-14 moderate; 15-21 severe): 0 Source: Developed by Drs. Camacho Matamoros, Shaneka Corea, Edgar Norman and colleagues, with an educational viral from [employer]. Physical exam (Primary Care) Vital Signs: Last Vital Signs Temp 97 F 03/15/25 16:26 Pulse 86 03/15/25 16:26 BP 138/80 03/15/25 16:26 Pulse Ox 95 03/15/25 16:26 Oxygen Delivery Method Room Air 03/15/25 16:26 BMI result Body Mass Index 21.0 Tobacco/Smoking Status: Tobacco use Status Tobacco use date assessed 03/15/25 03/15/25 16:35 Patient Tobacco Use Status Current everyday Tobacco 03/15/25 16:35 Tobacco use type Cigarette 03/15/25 16:35 e-Cigarette/Vaping Use Never Used 03/15/25 16:35 PHQ-9: PHQ-9 Score PHQ-9: Total score 0 03/15/25 16:35 Thrive Assessment: Date of Thrive Assessment Date Thrive assessed 03/15/25 03/15/25 16:35 Coding Level of Care Code New Pt Level 4 (96110) Complex EM visit Add On G2211 Diagnoses PAD (peripheral artery disease) I73.9 Atherosclerotic cardiovascular disease I25.10 Nonrheumatic aortic (valve) stenosis I35.0 COPD (chronic obstructive pulmonary disease) J44.9 Smoker F17.200 Callus of foot L84 HTN (hypertension) I10 Assessment & Plan Assessment & Plan (1) PAD (peripheral artery disease): Comment: 06/02/2024 - diagnostic angiogram 09/06/2024 - left femoral to above knee popliteal bypass Code(s): I73.9 - Peripheral vascular disease, unspecified Category: Medical Plan: Non functioning bypass per vascular surgery. Proceed with follow-up appointment and ultrasound in 6 months as advised by Dr. Ames. Continue baby aspirin statin. Smoking cessation again strongly advised (2) Atherosclerotic cardiovascular disease: Code(s): I25.10 - Atherosclerotic heart disease of [place] coronary artery without angina pectoris Category: Medical Plan: Stable. Reviewed last stress test and echocardiogram which are both reassuring. Reviewed last cardiology note. He will follow-up in 1 year as advised. Continue on baby aspirin and statin. (3) Nonrheumatic aortic (valve) stenosis: Code(s): I35.0 - Nonrheumatic aortic (valve) stenosis Category: Medical Plan: Echo reviewed. is mild and patient is asymptomatic. We will continue surveillance with Cardiology (4) COPD (chronic obstructive pulmonary disease): Code(s): J44.9 - Chronic obstructive pulmonary disease, unspecified Category: Medical Plan: Renewed prescription for Anoro. Also given prescription for albuterol to use as needed for shortness of breath and wheezing. We will continue monitoring, consider referral to pulmonology if symptoms remain uncontrolled (5) Smoker: Code(s): F17.200 - Nicotine dependence, unspecified, uncomplicated Category: Social Hx Plan: Smoking cessation strongly encouraged. He is not interested in replacement therapy at this time but will continue working on cutting back on the number of cigarettes smoked daily. Continue following with lung cancer screening for low- dose chest CT every 6 months as advised (6) Callus of foot: Code(s): L84 - Corns and callosities Category: Medical Plan: Declines referral to podiatry at this time (7) HTN (hypertension): Code(s): I10 - Essential (primary) hypertension Category: Medical Plan: Controlled. Continue amlodipine 2.5 mg daily. Plan Follow-up in the office in 6 months. Labs to be completed following visit today. Cologuard ordered. He is advised that if test is positive, he will be referred for colonoscopy Orders: Orders Basic Metabolic Panel Today D64.9 - Anemia, unspecified, F17.200 - Nicotine dependence, unspecified, uncomplicated, I35.0 - Nonrheumatic aortic (valve) stenosis, I73.9 - Peripheral vascular disease, unspecified, J44.9 - Chronic obstructive pulmonary disease, unspecified Complete Blood Count Auto Diff Today D64.9 - Anemia, unspecified, F17.200 - Nicotine dependence, unspecified, uncomplicated, I35.0 - Nonrheumatic aortic (valve) stenosis, I73.9 - Peripheral vascular disease, unspecified, J44.9 - Chronic obstructive pulmonary disease, unspecified Liver Panel Today D64.9 - Anemia, unspecified, F17.200 - Nicotine dependence, unspecified, uncomplicated, I35.0 - Nonrheumatic aortic (valve) stenosis, I73.9 - Peripheral vascular disease, unspecified, J44.9 - Chronic obstructive pulmonary disease, unspecified Prostate Specific Antigen Today D64.9 - Anemia, unspecified, F17.200 - Nicotine dependence, unspecified, uncomplicated, I35.0 - Nonrheumatic aortic (valve) stenosis, I73.9 - Peripheral vascular disease, unspecified, J44.9 - Chronic obstructive pulmonary disease, unspecified Lipid Panel Today D64.9 - Anemia, unspecified, F17.200 - Nicotine dependence, unspecified, uncomplicated, I35.0 - Nonrheumatic aortic (valve) stenosis, I73.9 - Peripheral vascular disease, unspecified, J44.9 - Chronic obstructive pulmonary disease, unspecified IRON PROFILE Today D64.9 - Anemia, unspecified Referrals Cologuard Test Z12.11 - Encounter for screening for malignant neoplasm of colon, Z12.12 - Encounter for screening for malignant neoplasm of rectum Medications: New umeclidinium 62.5 mcg/actuation Rinse mouth following surgery 1 inh inhalation DAILY 30 ea 5RF albuterol sulfate 90 mcg/actuation (Ventolin HFA) 2 puffs inhalation Q4-6H PRN 8.5 grams 0RF shortness of breath or wheezing
== END 2025-03-15 17:05 | disposition home or self-care (01) ==
LOC: HO.HMCHD 16:23
PROVIDERS: PCP Student in an Organized Health Care Education/Training Program; Visit Provider Physician Assistant
DX: I73.9 Peripheral vascular disease, unspecified (principal); I25.10 Atherosclerotic heart disease of native coronary artery without angina pectoris; I35.0 Nonrheumatic aortic (valve) stenosis; J44.9 Chronic obstructive pulmonary disease, unspecified; F17.200 Nicotine dependence, unspecified, uncomplicated; L84 Corns and callosities; I10 Essential (primary) hypertension